=== PATIENT | female | born 1965 | race Caucasian/White ===

== ENCOUNTER 2016-06-26 13:01 | Observation (INO) | payer BC, MEDICARE ==
[~2016-06-26] VITALS: Ht 157.5 cm; Wt 115.2 kg
[2016-06-26] VITALS (14 sets, daily range): BP systolic 94–122; BP diastolic 54–81; BMI 46.6
--- NOTE | ~2016-06-26 | OP ---
PATIENT NAME: FEDERICO DÍAZ MEDICAL RECORD: [id number] :65 LOCATION:[facility] Harsh[facility]annonCV04 ADMISSION DATE:06/26/16 SURGEON: BRITTON WILLIS MD DATE OF OPERATION: 06/27/2016 PROCEDURES: Left heart catheterization, selective coronary angiography, right femoral artery approach. CATHETERS: A 5-Northern Irish sheath, 5/4 left and right Alexander, 5/4 pig. The procedure was well tolerated and the patient returned to bashir. Sheath removed. ExoSeal device placed. FINDINGS: Left ventriculography in 30-degree PENNY view: Normal wall motion, normal systolic function. CORONARY ANATOMY: LEFT MAIN: Left main is free of disease. LAD: Free of disease. Area of previous stenting is widely patent. CIRCUMFLEX: Free of disease. Somewhat codominant system. RIGHT CORONARY ARTERY: Again, codominant system, free of disease. IMPRESSION: No evidence of restenosis. No progression of yurok disease. Normal LV systolic function. TRANSINT:[id number] Voice Confirmation ID: [id number] DOCUMENT ID: [id number] BRITTON WILLIS MD CC: [id number] DICTATION DATE: 06/27/16 1209 CAUL FAT PULLER: 06/27/162054 DIS IN 06/27/16 [facility] [address] [place] [address]
--- NOTE | ~2016-06-26 | HP ---
PATIENT: FEDERICO DÍAZ MEDICAL RECORD: [id number] ACCOUNT: [id number] LOCATION:[facility].CV04 : 65 ADMISSION DATE: 06/26/16 HISTORY AND PHYSICAL EXAMINATION HISTORY OF PRESENT ILLNESS: A 50-year-old lady with history of sick sinus syndrome, lupus, coronary artery disease, status post intervention, transferred from [place]. She reports that at home and by EMT, palpitation, she had a heart rate of 31. She has had a near syncopal episode on multiple occasions, some orthostatic symptomatology, some without any significant warning. She has also been having intermittent angina, chest pressure and tightness. We are asked to see her concerning her cardiovascular status. Again, she has a known history of coronary artery disease. PAST MEDICAL HISTORY: 1. History of sick sinus syndrome with PAF, bradyarrhythmias, status post permanent pacemaker placement. 2. Coronary artery disease, status post intervention. 3. Diabetes mellitus. 4. Hypertension. 5. Hyperlipidemia, intolerant to statins due to elevated LFTs. 6. Lupus erythematosus including kidney issues at one point in time. ALLERGIES: HYDROCODONE, HYDROCHLOROTHIAZIDE, LATEX. SOCIAL HISTORY: Lives in [facility]. She is a nonsmoker, No set exercise program. She is able to take care of her ADLs. REVIEW OF SYSTEMS: The patient reports easy bruising but reports no swollen glands. The patient reports no fever, no night sweats, no significant weight gain, no significant weight loss. No significant exercise tolerance. The patient reports no dry eyes, no irritation, no vision change. Patient reports no difficulty hearing and no ear pain. Patient reports no frequent nose bleeds or nose and sinus problems. Patient reports on arm pain on exertion. No shortness of breath while lying down. No history of heart murmur. Patient reports no cough, no wheezing or coughing up blood. Patient reports no abdominal pain, no vomiting. Normal appetite. No diarrhea and not vomiting blood. No nausea and no constipation. Patient reports no incontinence. No difficulty urinating. No hematuria. No increased frequency. Patient reports no muscle aches. No weakness, no arthralgias, no back pain. No swelling of the extremities. Patient reports no abnormal mole, no jaundice, no rashes. Reports no loss of consciousness. No weakness and no numbness. No seizures, dizziness, or headaches. The patient reports no depression, no sleep disturbance, feeling safe in a relationship and no alcohol abuse. Patient reports on fatigue. Reports no runny nose or sinus pressure. No itching, no hives, and no frequent sneezing. MEDICATIONS: Typically include Phenergan 6.25 q.4 hours p.r.n., epinephrine p.r.n., Robaxin 750 t.i.d., Plavix 75 q. day, lisinopril 20 q. day, pravastatin 20 q. day, sotalol 120 b.i.d., aspirin 81 q. day, Ativan 1 mg t.i.d. p.r.n., Topamax 50 b.i.d., trazodone 50 q.h.s., Ultram 50 q. 6 hours, Lasix 20 q. day, Pepcid 20 q. day, ____ b.i.d., Januvia 100 q. day. PHYSICAL EXAMINATION: GENERAL: Pleasant female, in no acute distress, appears stated age. HISTORY AND PHYSICAL [id number] FEDERICO DÍAZ VITAL SIGNS: Blood pressure 95/57, pulse 60 and regular. HEENT: Normocephalic, atraumatic. NECK: No JVD or bruit. HEART: Regular, II/ systolic ejection murmur. LUNGS: Clear. ABDOMEN: Soft, nontender. EXTREMITIES: Pulses are preserved, 2+. There is no edema. DIAGNOSTIC DATA: ECG is without acute change. Pacemaker interrogated, she is having some PVCs, suspect this is the arrhythmia described. Sleep study suggested as well since this was off. PLAN: We will plan for cardiac catheterization for which arteriography in the same setting. TRANSINT:[id number] Voice Confirmation ID: [id number] DOCUMENT ID: [id number] BRITTON WILLIS MD CC: [id number] DICTATION DATE: 06/27/16921 CARPENTER: 06/27/16 1246 ADM IN [place] [id number] [place] [address]
--- NOTE | ~2016-06-26 | HEMODYNAMI ---
PATIENT:FEDERICO DÍAZ MEDICAL RECORD: [id number] : 65 [id number] ADMISSION DATE: 06/26/16 Generatedon:06/27/201612:10 Patient name: FEDERICO DÍAZ Patient #: [id number] SSN: D OB: 1965 Date of study: 06/27/2016 Page: Of Hemodynamic Procedure Report Patient Data Patient Demographics Procedure consent was obtained First Name: FEDERICO Gender: Female Last Name: ARJUN : 1965 [facility] Initial: J Age: 50 year(s) Patient #: [id number] Race: Additional ID: [id number] Contact details [address]: [address] [place] [address] State: [place] City: [place] Zip code: [address] Past Medical History Allergies Allergen Reaction Date Comments Reported Other 07/03/2014 hydrocodone, Latex, allergy Hydochlorothiazide, Wasp Venom Other 06/27/2016 HCTZ,Hydrocodone,latex,wasp allergy Admission Admission Data Admission Date: 06/26/2016 Admission Time: 13:01 Room #: DCLEMENT04 Weight (lbs.): 251 Weight (kg.): 113.85 Lab Results Lab Result Date: 06/27/2016 Lab Result Time: 0:00 Biochemistry Name Units Result Min Max Creatinine mg/dl 0.9 --(-*--)-- 0.6 1.3 Procedure Procedure Types Cath Procedure Diagnostic Procedure LHC LHC w/Coronaries Peripheral Cath Diagnostic Procedure Cath Peripheral Four Vessel Arteriogram Procedure Description Procedure Date Procedure Date: 06/27/2016 Procedure Start Time: 11:51 Procedure End Time: 12:10 Procedure Staff Name Function Jarrod Aragon MD Performing Physician Denzel Cunningham RN Nurse Tanya Mendoza RT Scrub Aleksander Witt RT Monitor Procedure Data Cath Procedure Fluoroscopy Diagnostic fluoroscopy Total fluoroscopy Time: 4.5 time: 4.5 min min Diagnostic fluoroscopy Total fluoroscopy dose: 521 dose: 521 mGy mGy Contrast Material Contrast Material Type Amount (ml) Isovue 300 110 Entry Location Entry Primary Successful Side Size Upsize Upsize Entry Closure Succes sful Closure Location (Fr) 1 (Fr) 2 (Fr) Remarks Device Remarks Femoral Right 5 Fr Exoseal artery Estimated blood loss: 5 ml Diagnostic catheters Device Type Used For End Catheter Placement Cordis 5Fr JL 4.0 Procedure Catheter (MP) Cordis 5Fr 3DRC Catheter Procedure (MP) Cordis 5Fr Pigtail Procedure Catheter (MP) Procedure Complications No complications Procedure Medications Medication Administration Route Dosage Oxygen NC 2 l/min Heparin Flush Bag added to field 2 bags (1000units/500ml NS) 0.9% NaCl I.V. 100 ml/hr Fentanyl I.V. 50 mcg Versed I.V. 1 mg Fentanyl I.V. 50 mcg Versed I.V. 1 mg Fentanyl I.V. 50 mcg Versed I.V. 1 mg Fentanyl I.V. 50 mcg Versed I.V. 1 mg Hemodynamics Rest Heart Rate: 70 (bpm) Pressure Samples Time Site Value (mmHg) Purpose Heart Use Rate(bpm) 12:01 LV 89/27,28 Snapshot 69 12:01 LV 89/27,27 Snapshot 70 12:02 AO 97/69(74) Pullback 74 12:02 LV 83/17,25 Pullback 74 Gradients Valve Time Site 1 Site 2 Mean SEP/DFP Peak To Heart Use (mmHg) (sec/min) Peak Rate (mmHg) (bpm) Aortic 12:02 LV AO 0 11 0 74 83/17,25 97/69(74) Calculations Valve P-P Mean Valve Index Valve Source Name Gradient Area Flow (cm2) Aortic 0 0 0 0 Snapshots Pre Cath Intra NCS Post Cath Vital Signs Time Heart Resp SPO2 NIBP Rhythm Pain Sedation Rate (ipm) (%) (mmHg) Status Level (bpm) 11:40:15 69 18 100 118/78(97) NSR 0 (11) 10(A) , No pain 11:44:22 69 16 100 108/71(91) NSR 0 (11) 10(A) , No pain 11:48:30 69 18 100 98/72(87) NSR 0 (11) 10(A) , No pain 11:52:38 69 16 99 97/65(90) NSR 0 (11) 9(A) , No pain 11:56:44 73 17 98 97/65(81) NSR 0 (11) 9(A) , No pain 12:00:52 71 17 100 100/58(81) NSR 0 (11) 9(A) , No pain 12:04:58 69 18 98 94/62(75) NSR 0 (11) 9(A) , No pain 12:09:03 69 12 99 94/68(80) NSR 0 (11) 9(A) , No pain Medications Time Medication Route Dose Verified Delivered Reason Notes Effec tiveness by by 11:39:31 Oxygen NC 2 Denzel Denzel Per l/min Octavio Cunningham RN physician RN 11:39:40 Heparin Flush added 2 Denzel Denzel used for Bag to bags Octavio Cunningham RN procedure (1000units/500ml field RN NS) 11:39:50 0.9% NaCl I.V. 100 Denzel Denzel Per ml/hr Octavio Cunningham RN physician RN 11:49:37 Fentanyl I.V. 50 Denzel Denzel [place] [facility] [place]avio Cunningham RN sedation RN 11:49:44 Versed I.V. 1 mg Denzel Denzel for Octavio Cunningham RN sedation RN 11:51:53 Fentanyl I.V. 50 Denzel Denzel for [facility] Octavio Cunningham RN sedation RN 11:51:57 Versed I.V. 1 mg Denzel Denzel for Octavio Cunningham RN sedation RN 11:56:19 Fentanyl I.V. 50 Denzel Denzel for [facility] Octavio Cunningham RN sedation RN 11:56:22 Versed I.V. 1 mg Denzel Denzel for Octavio Cunningham RN sedation RN 11:58:37 Fentanyl I.V. 50 Denzel Denzel for [facility] Octavio Cunningham RN sedation RN 11:58:40 Versed I.V. 1 mg Denzel Denzel for Octavio Cunningham RN sedation millwright Log Time Note 11:15:19 Denzel Cunningham RN sent for patient. Start room use. 11:21:53 Time tracking: Regular hours 11:21:56 Plan of Care:Hemodynamics will remain stable., Cardiac rhythm will remain stable., Comfort level will be maintained., Respiratory function will remain adequate., Patient/ family verbilizes understanding of procedure., Procedure tolerated without complication., Recovers from procedure without complications.. 11:27:40 Patient received from CVICU to CCL 2 Alert and oriented. Tansferred to table in Supine position. 11:27:41 Warm blankets applied, and gabbi hugger turned on for patient comfort. 11:27:42 Correct patient and procedure confirmed by team. 11:27:43 Signed procedure consent form obtained from patient. 11:27:44 ECG and BP/O2 sat monitors applied to patient. 11:39:13 Vital chart was started 11:39:31 Oxygen 2 l/min NC was administered by Denzel Cunningham RN; Per physician; 11:39:40 Heparin Flush Bag (1000units/500ml NS) 2 bags added to field was administered by Denzel Cunningham RN; used for procedure; 11:39:50 0.9% NaCl 100 ml/hr I.V. was administered by Denzel Cunningham RN; Per physician; 11:42:59 Baseline sample Acquired. 11:43:08 Rhythm: paced 11:46:07 H&P Date Dictated: 06/27/2016 Within 30 days and on chart.. 11:46:08 Pre-procedure instructions explained to patient. 11:46:08 Pre-op teaching completed and patient verbalized understanding. 11:46:11 Family in waiting room. 11:46:13 Patient NPO since Midnight. 11:46:43 Patient allergic to Other allergyHCTZ,Hydrocodone,latex,wasp 11:46:45 Is the patient allergic to Iodine/contrast media? No. 11:46:46 Is patient on blood thinner?Yes 11:46:48 ACC The patient was administered the following blood thiners within the last 24 hours: ACCPlavix 11:46:49 Patient diabetic? Yes. 11:46:50 If diabetic: On Metformin? No 11:46:54 Previous problem with sedation/anesthesia? No ? 11:46:54 Snore? Yes 11:46:55 Sleep apnea? Yes 11:46:56 Deviated septum? No 11:46:57 Opens mouth fully? Yes 11:46:57 Sticks out tongue? Yes 11:46:59 Airway obstruction? No ? 11:47:04 Dentures? Yes in tight 11:47:08 Pre procedure: right dorsailis pedis pulse 1+ Palpable, but thready & weak; easily obliterated 11:47:10 Patient pain scale 0/10 ?. 11:47:21 IV patent on arrival in right forearm with 0.9% NaCl at [facility]. 11:47:38 Lab Result : Creatinine 0.9 mg/dl 11:47:40 Lab results completed and on chart. 11:47:43 Right groin area was prepped with chlora-prep and draped in sterile fashion 11:47:44 Alarms reviewed by R. N. 11:47:45 Alarms reviewed by R. N. 11:47:45 Sharps counted by scrub and verified by R.N. 11:47:46 Physician arrived 11:47:46 --------ALL STOP TIME OUT------ 11:47:47 Final Timeout: patient, procedure, and site verified with staff and physician. All members of the team are in agreement. 11:47:48 Right groin site verified by team. 11:47:52 Physical assessment completed. ASA score P 2 - A patient with mild systemic disease as per Jarrod Aragon MD. 11:47:55 Sedation plan: IV Moderate Sedation Versed, Fentanyl 11:47:58 Use device set Femoral Dx 11:47:59 Tegaderm 4 x 4 opened to sterile field. 11:48:00 Acist Hand Control opened to sterile field. 11:48:01 Acist Manifold opened to sterile field. 11:48:02 Acist Syringe opened to sterile field. 11:48:03 Bag Decanter opened to sterile field. 11:48:03 Medline Cath Pack opened to sterile field. 11:48:04 Terumo 5Fr [place] Sheath opened to sterile field. 11:48:04 [facility] Mark 260cm J .035 wire opened to sterile field. 11:48:05 Diagnostic Infinity 5Fr Multipack catheter opened to sterile field. 11:49:24 Zero performed for pressure channel P1 11:49:37 Fentanyl 50 mcg I.V. was administered by Denezl Cunningham RN; for sedation; 11:49:44 Versed 1 mg I.V. was administered by Denzel Cunningham RN; for sedation; 11:51:37 Procedure started. 11:51:37 Full Disclosure recording started 11:51:40 Local anesthetic to right femoral artery with Lidocaine 2% by Jarrod Aragon MD.INITIAL ACCESS ONLY 11:51:53 Fentanyl 50 mcg I.V. was administered by Denzel Cunningham RN; for sedation; 11:51:57 Versed 1 mg I.V. was administered by Denzel Cunningham RN; for sedation; 11:52:26 A 5 Fr sheath was inserted into the Right Femoral artery 11:52:52 A Cordis 5Fr JL 4.0 Catheter (MP) was advanced over the wire and used for Procedure. 11:53:51 LCA angiography performed. 11:54:24 Catheter exchanged over wire. 11:54:34 A Cordis 5Fr 3DRC Catheter (MP) was advanced over the wire and used for Procedure. 11:55:25 RCA angiography performed. 11:56:19 Fentanyl 50 mcg I.V. was administered by Denzel Cunningham RN; for sedation; 11:56:22 Versed 1 mg I.V. was administered by Denzel Cunningham RN; for sedation; 11:58:37 Fentanyl 50 mcg I.V. was administered by Denzel Cunningham RN; for sedation; 11:58:38 Left carotid angiography performed. 11:58:40 Versed 1 mg I.V. was administered by Denzel Cunningham RN; for sedation; 11:59:12 Right carotid angiography performed. 12:00:10 Catheter removed. 12:00:38 Procedure type changed to Cath procedure, Diagnostic procedure, LHC, LHC w/Coronaries, Peripheral Cath Diagnostic Procedure, Cath Peripheral, Four Vessel Arteriogram 12:01:00 A Cordis 5Fr Pigtail Catheter (MP) was advanced over the wire and used for Procedure. 12:01:46 LV hemodynamics recorded. 12:01:47 LV gram done using PENNY 12:01:50 Injector settings: Ml/sec: 10, Volume: 20, 12:02:02 EF : 60 % 12:02:16 Catheter removed. 12:02:30 Cordis 5Fr Exoseal opened to sterile field. 12:03:19 Sheath removed intact; hemostasis achieved with Exoseal to the Right Femoral artery. 12:03:20 Procedure ended.(Physican Out) 12:05:41 Fluoroscopy time 04.50 minutes. 12:05:46 Fluoroscopy dose: 521 mGy 12:05:46 Flurop Dose total: 521 12:05:53 Contrast amount:Isovue 300 110ml. 12:05:54 Sharps counted by scrub and verified by R.N. 12:05:55 Insertion/operative site no bleeding no hematoma. 12:05:57 Post-op/insertion site Right Femoral artery dressed using a 4 x 4 and Tegaderm. 12:06:00 Post right femoral artery:stable, soft, clean and dry 12:06:03 Post Procedure Pulses reassessed and unchanged 12:06:05 Post-procedure physical assessment completed. ASA score P 2 - A patient with mild systemic disease as per Jarrod Aragon MD. 12:06:07 Post procedure rhythm: unchanged. 12:06:09 Estimated blood loss: 5 ml 12:09:56 Procedure and supply charges have been captured, reviewed, submitted and are correct. 12:09:59 Procedure Complication : No complications 12:10:01 Vital chart was stopped 12:10:01 See physician's report for complete and final results. 12:10:04 Report given to CVICU. 12:10:06 Patient transfered to CVICU with Stretcher. 12:10:08 Procedure ended. 12:10:08 Full Disclosure recording stopped 12:10:14 End room use (Document Last) 12:10:25 Patient Weight : 113.85 kg Device Usage Item Name Manufacture Quantity Catalog Hospital Part Current Minimal Lo t# / Number Charge Number Stock Stock Serial# Code Tegaderm 4 3M 1 [id number] 798100 5 x 4 Acist Hand Acist 1 70434 750761 711795 844807 5 Control [employer] Inc Acist Acist 1 05348 066392 965054 347652 5 Manifold Medical [employer] Inc Acist Acist 1 98226 140498 264245 633779 20 Syringe Medical Systems Inc Bag Microtek 1 2002S 978305 61911 120705 5 Decanter [employer] Inc[employer] Medline Cardinal 1 [id number] 569135 02619 708787 5 Cath Pack Health Terumo 5Fr Terumo 1 [id number] 276508 019836 174261 [address] [facility] 1 576968 665959 068564 692494 30 260cm J .035 wire Diagnostic Cardinal 1 [id number] 777643 28620 495510 30 Infinity Health 5Fr Multipack catheter Cordis 5Fr Cardinal 1 406142 5 JL 4.0 Health Catheter (MP) Cordis 5Fr Cardinal 1 697525 5 3DRC Health Catheter (MP) Cordis 5Fr Cardinal 1 EX500 565859 863223 208666 10 [facility] Health Cordis 5Fr Cardinal 1 [id number] 5 Pigtail Health Catheter (MP) Signature Audit [place] Stage Time Signature Unsigned Intra-Procedure 06/27/2016 Aleksander Witt 12:10:36 PM RT(R) Signatures Monitor : Aleksander Witt RT Signature : Date : Time : [place] [address] [place] [address]
--- NOTE | ~2016-06-26 | OP ---
PATIENT NAME: FEDERICO DÍAZ MEDICAL RECORD: [id number] :65 LOCATION:DShannonCONCHITABrittny D.CV04 ADMISSION DATE:06/26/16 SURGEON: BRITTON WILLIS MD DATE OF OPERATION: 06/27/2016 Carotid Doppler FINDINGS: 1. Right common carotids were selectively engaged. Findings are as follows: The right common carotid is widely patent with minimal irregularities. Right external carotid is widely patent with luminal irregularities. 2. Right internal carotid is widely patent with luminal irregularities. The catheter was drawn proximally and the left common carotid was cannulated again selectively. 3. Left common carotid is normal. The left external carotid is normal without significant disease. Left internal carotid is normal without significant disease. IMPRESSION: Normal 4-vessel arteriography. TRANSINT:[id number] Voice Confirmation ID: [id number] DOCUMENT ID: [id number] BRITTON WILLIS MD CC: [id number] DICTATION DATE: 06/27/16 1210 PATIENT ADMITTING CLERK: 06/27/162058 DIS IN 06/27/16 [facility] [address] [place] [id number]
[~2016-06-26 13:01] MED LIST: ATIVAN0.5 MG PO; BAYER CHEWABLE81 MG PO; BENADRYL25 MG PO; BYSTOLIC2.5 MG PO; CORTEF10 MG PO; EPIPEN0.3 MG/0.3 IM; FUROSEMIDE20 MG PO; GAS-X125 M1 PO; NITROSTAT0.3 MG SL; PEPCID20 MG PO; PLAVIX75 MG PO; PRAVACHOL20 MG PO; PRECOSE25 MG PO; PRILOSEC20 MG PO; PRINIVIL20 MG PO; PROAIR HFA8.5 GM INH; PULMICORT180 MCG/AE INH; RYTHMOL225 MG PO; TOPAMAX50 MG PO; ULTRAM50 MG PO; [UNRECOGNIZED DRUG - REMARK] INH
[2016-06-26] MEDS ORDERED: BETAPACE 120 M120 MG PO (14:06)
[2016-06-26] MEDS ORDERED: PHENERGAN6.25 MG/5 PO (14:07)
[2016-06-26] MEDS ORDERED: ACETAMINOPHEN325 MG PO (14:08)
[2016-06-26] MEDS ORDERED: TRAZODONE HCL50 MG PO (14:08)
[2016-06-26] MEDS ORDERED: ROBAXIN-750750 MG PO (14:10)
[2016-06-26] MEDS ORDERED: PULMICORT180 MCG/AE INH (14:11)
[2016-06-26] MEDS ORDERED: JANUVIA100 MG PO (14:12)
[2016-06-26] MEDS ORDERED: ULTRAM50 MG PO (14:13)
[2016-06-26] MEDS ORDERED: TOPAMAX50 MG PO (14:14)
--- NOTE | 2016-06-26 17:36 | NUR ---
REVIEWED ALL HOME MEDS WITH PATIENT AND -UPDATED CONTACT TELEPHONE NUMBER-NOTED SR MONITOR AT 69-71-WITH 10% PACED BEATS
--- NOTE | 2016-06-26 18:36 | NUR ---
AMBULATED TO TOILET WITH ASSIST OF -PACED 100%-70
--- NOTE | 2016-06-26 19:15 | NUR ---
REPORT RECVD. CARE ASSUMED. INITIAL ASSMNT COMPLETED. SEE FLOWSHEET FOR ALL FINDINGS. AWAKE AND AOX4. PERRLA NOTED. MAEW ON COMMAND. RESP EVEN AND UNLABORED. SHALLOW. LUNGS CTA, DIM IN BASES. REPORTS PRODUCTIVE COUGH AT TIMES. SPO2 97% ON O2 AT 2 LPM NC. AFEBRILE. SR ON THE MONITOR. PERM PM TP LEFT CHEST. PULSES PALP, WEAK. SYS B/P WITHIN PARAMETERS. SCDS ON AND IN USE. REPORTS GENERALIZED CHRONIC PAIN AT THIS TIME. DENIES CHEST PAIN. REPORTS FEELING "SMOTHERED." FAN IN USE. ABD SOFT, ROUND WITH ACTIVE BS X4. VOIDING. UP WITH MINIMAL ASSIST TO BR PRN. AT BEDSIDE. PO FLUID AND SNACK PROVIDED. HOB UP. C/L IN REACH. CONT CURRENT POC.
--- NOTE | 2016-06-26 20:30 | NUR ---
FSBS WITHIN PARAMETERS. HS MEDS GIVEN. PRN ATIVAN PROVIDED FOR ANXIETY. UP TO BR TO VOID NO DIFF. VSS. PACED ON THE MONITOR AT TIMES. REPORTS GENERALIZED ACHING AND RESTLESSNESS. POSITIONS SELF IN BED FOR COMFORT. HOB UP. C/L IN REACH. CONT CURRENT POC.
--- NOTE | 2016-06-26 23:15 | NUR ---
REASSESSMENT COMPLETED. SEE FLOWSHEET FOR ALL FINDINGS. RESTING.AOX4. AALIYAH NOTED. MAEW ON COMMAND. RESP EVEN AND UNLABORED. SHALLOW. LUNGS CTA, DIM IN BASES. REPORTS PRODUCTIVE COUGH AT TIMES. SPO2 97% ON O2 AT 2 LPM NC. AFEBRILE. SR ON THE MONITOR. PERM PM TO LEFT CHEST. PULSES PALP, WEAK. SYS B/P WITHIN PARAMETERS. SCDS ON AND IN USE. REPORTS GENERALIZED CHRONIC PAIN AT THIS TIME. DENIES CHEST PAIN. REPORTS FEELING "SMOTHERED." FAN IN USE ABD SOFT, ROUND WITH ACTIVE BS X4. VOIDING. UP WITH MINIMAL ASSIST TO BR PRN. AT BEDSIDE. PO FLUIDS AT BEDSIDE. REMINDED OF NPO AFTER MIDNIGHT. VERBALIZES UNDERSTANDING. HOB UP. C/L IN REACH. CONT CURRENT POC.
[2016-06-27] VITALS (16 sets, daily range): BP systolic 95–120; BP diastolic 57–85; Ht 157.5 cm; Wt 115.2 kg
--- NOTE | 2016-06-27 00:20 | NUR ---
PT REPORTS INCREASED LEFT ARM PAIN AND RADIATING JAW PAIN. HR 62. EKG CONFIRMED NORMAL SINUS RHYTHM. NO ECTOPY. REPORED TO DR WILLIS. ORDERS RECVD FOR PAIN CONTROL. PT TEACHING DONE. VERBALIZES UNDERSTANDING. CONT CURRENT POC.
--- NOTE | 2016-06-27 01:21 | NUR ---
RESTING IN BED. PAIN DECREASED. VSS. SR ON THE MONITOR. HOB UP. C/L IN REACH. NPO.
--- NOTE | 2016-06-27 03:15 | NUR ---
REASSESSMENT COMPLETED. SEE FLOWSHEET FOR ALL FINDINGS. RESTING. AOX4. AALIYAH NOTED. MAEW ON COMMAND. RESP EVEN AND UNLABORED. SHALLOW. LUNGS CTA, DIM IN BASES. REPORTS PRODUCTIVE COUGH AT TIMES. SPO2 97% ON O2 AT 2 LPM NC. AFEBRILE. SR ON THE MONITOR. PERM PM TP LEFT CHEST. PULSES PALP, WEAK. SYS B/P WITHIN PARAMETERS. SCDS ON AND IN USE. REPORTS GENERALIZED CHRONIC PAIN AT THIS TIME. DENIES CHEST PAIN. REPORTS FEELING "SMOTHERED." FAN IN USE ABD SOFT, ROUND WITH ACTIVE BS X4. VOIDING. UP WITH MINIMAL ASSIST TO BR PRN. AT BEDSIDE. NPO SINCE MN. HOB UP. C/L IN REACH. CONT CURRENT POC.
--- NOTE | 2016-06-27 04:30 | NUR ---
C/O FEELING "HPT AND SWEATY AND SMOTHERED!" ANXIOUS. REQUESTS ATIVAN AND MUSCLE RELAXER TO PROMOTE REST AND DECREASE ANXIETY. SPO2 99% ON O2 AT 2 LPM. HR 60 NSR. HOB UP. C/L IN REACH. CONT TO MONITOR.
[2016-06-27 05:18] LABS: BASOPHILS 0.1 % (0-2); EOSINOPHILS 5.1 % (0-7); HEMATOCRIT 35.8 % (36.0-48.0); HEMOGLOBIN 10.9 g/dL (12-16); IMMATURE GRANULOCYTES 0.3 % (0-5); LYMPHOCYTES 36.6 % (15-50); MCH 22.8 pg (26.0-34.0); MCHC 30.4 g/dL (31.0-37.0); MCV 74.9 fL (80.0-100.0); MEAN PLATELET VOLUME 9.8 fL (7.4-10.4); MONOCYTES 10.7 % (2-11); NEUTROPHILS 47.2 % (40-80); PLATELET COUNT 296 10x3/uL (130-400); RBC 4.78 10x6/uL (4.00-5.40); WBC 7.3 10x3/uL (4.8-10.8)
--- NOTE | 2016-06-27 05:30 | NUR ---
RESTING SIDE LYING WITH EYES CLOSED. VSS. SR ON THE MONITOR. CONT POC.
[2016-06-27 05:35] LABS: APTT 22.6 SECONDS (22.8-39.4); INR 0.92 (0.85-1.17); PROTIME 12.2 SECONDS (11.6-15.0)
[2016-06-27 05:40] LABS: ALBUMIN 2.9 g/dL (3.4-5.0); ANION GAP 11.9 mmol/L (8-16); BILIRUBIN - TOTAL 0.32 mg/dL (0.2-1.3); CALCIUM 8.5 mg/dL (8.5-10.1); CARBON DIOXIDE 26.8 mmol/L (21.0-32.0); CREATININE - SERUM 0.9 mg/dL (0.6-1.3); POTASSIUM - SERUM 3.7 mmol/L (3.5-5.1); PROTEIN - SERUM 6.5 g/dL (6.4-8.2)
--- NOTE | 2016-06-27 07:00 | NUR ---
Recevied report and assumed care of patient. Patient currently awake, alert and oriented. HR 63 sinus rhtyhm on CM, No pacer spikes noted on CM. Right forearm PIV saline locked without redness or tenderness. SBP low 100s. SCDS in place. See shift assessment flowsheet for all full assessment.
--- NOTE | 2016-06-27 08:20 | NUR ---
Roger with [facility] through, patient to go for Cath this morning. POC discussed with patient.
--- NOTE | 2016-06-27 08:31 | NUR ---
[employer]tr[employer] in room to interegate permanent pacemaker. Internal clock was off 1 hour, adjusted, HR now 70, 100% paced.
--- NOTE | 2016-06-27 09:05 | NUR ---
Patient assisted patient to bathroom, wash cloths, tooth brush provided. helped patient clean up, new gown provided.
--- NOTE | 2016-06-27 09:20 | NUR ---
in to see patient. He will be taking pt to superintendent geophysical laboratory today. POC discussed with pt and myself.
--- NOTE | 2016-06-27 10:21 | NUR ---
Patient requesting Pulmicort, informed her that the next dose isnt due until 5pm.
--- NOTE | 2016-06-27 11:31 | NUR ---
Patient taken to laboratory engineer by Denzel via bed.
--- NOTE | 2016-06-27 12:17 | NUR ---
Received report from Denzel. in to see patient's , gave him update on cath.
--- NOTE | 2016-06-27 12:18 | NUR ---
Patient back from quality lab technician. Connected to .
--- NOTE | 2016-06-27 14:29 | NUR ---
Patients access site CDI, without hematoma, soft to touch. HOB increased, pt eating lunch tray with husbands assistance.
--- NOTE | 2016-06-27 15:10 | NUR ---
Patient up to bathroom. Access site remains soft, clean. Patient to be d/c home.
== END 2016-06-27 16:07 | disposition home or self-care (01) ==
LOC: D.CVICU 13:01 → OBSVTIME 13:01 → D.CVICU 06-27 16:07
PROVIDERS: ADMIT Internal Medicine Interventional Cardiology
DX: R07.9 Chest pain, unspecified (principal); I25.10 Atherosclerotic heart disease of native coronary artery without angina pectoris; I48.0 Paroxysmal atrial fibrillation; Z95.0 Presence of cardiac pacemaker; E11.9 Type 2 diabetes mellitus without complications; I10 Essential (primary) hypertension; E78.5 Hyperlipidemia, unspecified; M32.9 Systemic lupus erythematosus, unspecified

== ENCOUNTER → 2016-09-20 09:02 | Outpatient (CLI) | payer BC, MEDICARE ==
[2016-06-27 09:20] VITALS: BMI 46.5
[~2016-09-20 09:02] MED LIST changes: +ACETAMINOPHEN325 MG PO; +BETAPACE 120 M120 MG PO; +JANUVIA100 MG PO; +PHENERGAN6.25 MG/5 PO; +ROBAXIN-750750 MG PO; +TRAZODONE HCL50 MG PO
[2016-09-21 10:19] LABS: HEPATITIS C ANTIBODY <0.1 (0.0-0.9)
[2016-09-21 11:18] LABS: ALPHA FETOPROTEIN -(TUMOR MRK) 3.7 ng/mL (0.0-8.3)
== END | disposition home or self-care (01) ==
LOC: D.US 09:02
PROVIDERS: Internal Medicine Gastroenterology
DX: R93.8 Abnormal findings on diagnostic imaging of other specified body structures (principal); R74.8 Abnormal levels of other serum enzymes

== ENCOUNTER 2016-12-27 09:43 | Outpatient (CLI) | payer BC, MEDICARE ==
[2016-06-27 09:20] VITALS: BMI 46.5
--- NOTE | ~2016-12-27 | HEMODYNAMI ---
PATIENT:FEDERICO DÍAZ MEDICAL RECORD: [id number] : 65 LOCATION:DShannonCAT ADMISSION DATE: 12/27/16 Generatedon:12/27/201613:48 Patient name: FEDERICO DÍAZ Patient #: [id number] SSN: D OB: 1965 Date of study: 12/27/2016 Page: Of Hemodynamic Procedure Report Patient Data Patient Demographics Procedure consent was obtained First Name: FEDERICO Gender: Female Last Name: ARJUN : 1965 [facility] Initial: J Age: 51 year(s) Patient #: [id number] Race: Additional ID: [id number] Contact details [address]: [address] [place] [address] State: [place] City: [place] Zip code: [address] Past Medical History Allergies Allergen Reaction Date Comments Reported Other 07/03/2014 hydrocodone, Latex, allergy Hydochlorothiazide, Wasp Venom Other 06/27/2016 HCTZ,Hydrocodone,latex,wasp allergy Other 12/27/2016 HYDROCODONE, LATEX, HCT2 allergy Admission Admission Data Admission Date: 12/27/2016 Admission Time: 9:43 Admit Source: Other Lab Results Lab Result Date: 12/27/2016 Lab Result Time: 0:00 Biochemistry Name Units Result Min Max BUN mg/dl 15 --(--*-)-- 7 18 Creatinine mg/dl 0.9 --(-*--)-- 0.6 1.3 CBC Name Units Result Min Max Hemoglobin g/dl 10.4 *-(----)-- 13.5 17.5 Procedure Procedure Types Cath Procedure Diagnostic Procedure LHC LH w/Coronaries PCI Procedure Coronary Stent Initial Miscellaneous Procedures Moderate Sedation up to 30 minutes Procedure Description Procedure Date Procedure Date: 12/27/2016 Procedure Start Time: 13:24 Procedure End Time: 13:47 Procedure Staff Name Function Jarrod Aragon MD Performing Physician Jennie Weldon RT Scrub Denzel Cunningham RN Nurse Aleksander Witt RT Monitor Procedure Data Cath Procedure Fluoroscopy Diagnostic fluoroscopy Total fluoroscopy Time: 5.6 time: 5.6 min min Diagnostic fluoroscopy Total fluoroscopy dose: 826 dose: 826 mGy mGy Contrast Material Contrast Material Type Amount (ml) Isovue 300 113 Entry Location Entry Primary Successful Side Size Upsize Upsize Entry Closure Succes sful Closure Location (Fr) 1 (Fr) 2 (Fr) Remarks Device Remarks Femoral Right 5 Fr 6 Fr Exoseal artery Short Estimated blood loss: 10 ml Diagnostic catheters Device Type Used For End Catheter Placement Cordis 5Fr JL 4.0 Procedure Catheter (MP) Cordis 5Fr 3DRC Catheter Procedure (MP) Cordis 5Fr Pigtail Procedure Catheter (MP) Procedure Complications No complications Procedure Medications Medication Administration Route Dosage Oxygen NC 2 l/min Heparin Flush Bag added to field 2 bags (1000units/500ml NS) 0.9% NaCl I.V. 100 ml/hr Zofran I.V. 4 mg Fentanyl I.V. 50 mcg Versed I.V. 1 mg Fentanyl I.V. 50 mcg Versed I.V. 1 mg Heparin Bolus I.V. 4000 units Integrilin (Bolus I.V. 10.2 ml 2mg/ml) Integrilin (Bolus wasted 9.8 ml 2mg/ml) Hemodynamics Rest HGB: 10.4 (g/dl) Heart Rate: 71 (bpm) Pressure Samples Time Site Value (mmHg) Purpose Heart Use Rate(bpm) 13:29 LV 112/14,20 EDP 75 13:30 AO 120/74(93) Pullback 82 13:30 LV 104/16,19 Pullback 82 Gradients Valve Time Site 1 Site 2 Mean SEP/DFP Peak To Heart Use (mmHg) (sec/min) Peak Rate (mmHg) (bpm) Aortic 13:30 LV AO 0 8 0 82 104/16,19 120/74(93) Calculations Valve P-P Mean Valve Index Valve Source Name Gradient Area Flow (cm2) Aortic 0 0 0 0 Snapshots Pre Cath Intra NCS Post Cath Vital Signs Time Heart Resp SPO2 etCO2 NIBP (mmHg) Rhythm Pain Sedation Rate (ipm) (%) (mmHg) Status Level (bpm) 13:06:06 75 17 100 21 118/79(97) NSR 0 (11) 10(A) , No pain 13:11:36 69 18 100 29.3 124/83(99) NSR 0 (11) 10(A) , No pain 13:16:23 69 17 100 32.3 124/81(97) NSR 0 (11) 10(A) , No pain 13:21:09 69 17 100 27 125/77(101) NSR 0 (11) 10(A) , No pain 13:25:54 69 18 100 10.5 116/77(93) NSR 0 (11) 9(A) , No pain 13:30:37 75 18 97 9.7 113/79(93) NSR 0 (11) 9(A) , No pain 13:35:19 78 17 95 30.8 113/74(91) NSR 0 (11) 9(A) , No pain 13:40:00 80 18 96 33.8 102/69(87) NSR 0 (11) 9(A) , No pain 13:44:41 72 22 100 30.8 114/75(88) NSR 0 (11) 10(A) , No pain Medications Time Medication Route Dose Verified Delivered Reason Notes Effectiveness by by 13:23:54 Oxygen NC 2 Jarrod Denzel Per physician l/min St. Willam Cunningham RN, MD 13:24:02 Heparin Flush added 2 Jarrod Mahoney used for Bag to bags [facility]. Willam Cunningham RN procedure (1000units/500ml field WALSH NS) 13:24:14 0.9% NaCl I.V. 100 Jarrod Mahoney Per physician ml/hr [facility] Willam Cunningham RN, MD 13:24:26 Zofran I.V. 4 mg Jarrod Mahoney Per physician [facility]. Willam Cunningham RN, MD 13:24:34 Fentanyl I.V. 50 Jarrod Joyy for sedation mcg [facility] Willam Cunningham RN, MD 13:24:41 Versed I.V. 1 mg Jarrod Mahoney for sedation [facility]. Willam Cunningham RN, MD 13:26:39 Fentanyl I.V. 50 Jarrod Mahoney for sedation mcg [facility] Willam Cunningham RN, MD 13:26:42 Versed I.V. 1 mg Jarrod Joyy for sedation [facility]. Willam Cunningham RN, MD 13:32:50 Heparin Bolus I.V. 4000 Jarrod Mahoney for units [facility] Willam Cunningham RN anticoagulation 13:33:03 Integrilin I.V. 10.2 Jarrod Mahoney for (Bolus 2mg/ml) ml [facility] Willam Cunningham RN anticoagulation MD 13:33:12 Integrilin wasted 9.8 Jarrod Mahoney for (Bolus 2mg/ml) ml [facility]. Willam Cunningham RN anticoagulation MD Procedure Log Time Note 12:42:27 Jennie Weldon RT(R) sent for patient. Start room use. 12:49:49 Informed consent obtained and on chart 12:49:56 Admit Source: Other 12:52:23 Diagnostic Cath status Elective 12:52:28 Time tracking: Regular hours 12:52:33 Plan of Care:Hemodynamics will remain stable., Cardiac rhythm will remain stable., Comfort level will be maintained., Respiratory function will remain adequate., Patient/ family verbilizes understanding of procedure., Procedure tolerated without complication., Recovers from procedure without complications.. 12:55:03 H&P Date Dictated: 12/08/2016 Within 30 days and on chart., H&P Addendum completed by physician on day of procedure. (MUST COMPLETE FOR ALL OUTPATIENTS). 12:56:37 Patient received from Pre/Post Procedure Room to CCL 1 Alert and oriented. Tansferred to table in Supine position. 12:56:38 Warm blankets applied, and gabbi hugger turned on for patient comfort. 12:56:39 Correct patient and procedure confirmed by team. 12:56:40 ECG and BP/O2 sat monitors applied to patient. 13:05:09 Vital chart was started 13:05:10 Baseline sample Acquired. 13:05:15 Rhythm: sinus rhythm 13:05:19 Full Disclosure recording started 13:05:21 Baseline sample Acquired. 13:05:25 Pre-procedure instructions explained to patient. 13:05:26 Pre-op teaching completed and patient verbalized understanding. 13:05:29 Family in waiting room. 13:05:34 Patient NPO since Breakfast. 13:07:10 Patient allergic to Other allergyHYDROCODONE, LATEX, HCT2 13:07:14 Is the patient allergic to Iodine/contrast media? No. 13:07:17 Is patient on blood thinner?Yes 13:07:22 ACC The patient was administered the following blood thiners within the last 24 hours: ACCPlavix 13:07:24 Patient diabetic? Yes. 13:07:27 If diabetic: On Metformin? No 13:10:36 Patient not . Patient has had tubal. 13:11:00 Previous problem with sedation/anesthesia? Yes NAUSEA 13:11:03 Snore? Yes 13:11:05 Sleep apnea? Yes 13:11:06 Deviated septum? No 13:11:07 Opens mouth fully? Yes 13:11:08 Sticks out tongue? Yes 13:11:43 Airway obstruction? No ? 13:11:47 Dentures? No ? 13:12:25 PATIENT HAS SYSTEMIC LUPUS ERYTHEMATOSIS 13:12:38 Pre procedure: right dorsailis pedis pulse 1+ Palpable, but thready & weak; easily obliterated 13:12:41 Patient pain scale 0/10 ?. 13:12:53 IV patent on arrival in left hand with 0.9% NaCl at [facility]. 13:14:01 Lab Result : BUN 15 mg/dl 13:14:01 Lab Result : Creatinine 0.9 mg/dl 13:14:01 Lab Result : Hemoglobin 10.4 g/dl 13:15:14 Physician arrived 13:15:15 Lab results completed and on chart. 13:15:31 Right groin area was prepped with chlora-prep and draped in sterile fashion 13:15:35 Alarms reviewed by R. N. 13:15:36 Sharps counted by scrub and verified by R.N. 13:15:41 --------ALL STOP TIME OUT------ 13:15:41 Final Timeout: patient, procedure, and site verified with staff and physician. All members of the team are in agreement. 13:15:43 Right groin site verified by team. 13:15:47 Physical assessment completed. ASA score P 2 - A patient with mild systemic disease as per Jarrod Aragon MD. 13:15:51 Sedation plan: IV Moderate Sedation Versed, Fentanyl 13:21:43 Use device set Femoral Dx 13:21:56 Acist Syringe opened to sterile field. 13:21:58 Bag Decanter opened to sterile field. 13:21:59 Medline Cath Pack opened to sterile field. 13:22:00 Terumo 5Fr [place] Sheath opened to sterile field. 13:22:01 St Mark 260cm J .035 wire opened to sterile field. 13:22:02 Acist Hand Control opened to sterile field. 13:22:03 Acist Manifold opened to sterile field. 13:22:04 Diagnostic Infinity 5Fr Multipack catheter opened to sterile field. 13:22:06 Tegaderm 4 x 4 opened to sterile field. 13::29 Zero performed for pressure channel P1 13::54 Oxygen 2 l/min NC was administered by Denzel Cunningham RN; Per physician; 13:24:02 Heparin Flush Bag (1000units/500ml NS) 2 bags added to field was administered by Denzel Cunningham RN; used for procedure; 13:24:14 0.9% NaCl 100 ml/hr I.V. was administered by Denzel Cunningham RN; Per physician; 13:24:20 Baseline sample Acquired. 13:24:23 Procedure started. 13::26 Zofran 4 mg I.V. was administered by Denzel Cunningham RN; Per physician; 13::26 Local anesthetic to right femoral artery with Lidocaine 2% by Jarrod Aragon MD.INITIAL ACCESS ONLY 13:24:33 A 5 Fr sheath was inserted into the Right Femoral artery 13:24:34 Fentanyl 50 mcg I.V. was administered by Denzel Cunningham RN; for sedation; 13:24:41 Versed 1 mg I.V. was administered by Denzel Cunningham RN; for sedation; 13:25:15 A Cordis 5Fr JL 4.0 Catheter (MP) was advanced over the wire and used for Procedure. 13:26:36 LCA angiography performed. 13::39 Fentanyl 50 mcg I.V. was administered by Denzel Cunningham RN; for sedation; 13::42 Versed 1 mg I.V. was administered by Denzel Cunningham RN; for sedation; 13::23 Catheter exchanged over wire. 13:27:32 A Cordis 5Fr 3DRC Catheter (MP) was advanced over the wire and used for Procedure. 13:29:07 RCA angiography performed. 13:29:08 Catheter exchanged over wire. 13:29:12 A Cordis 5Fr Pigtail Catheter (MP) was advanced over the wire and used for Procedure. 13::29 Merit BasixCompak Inflation Kit opened to sterile field. 13::54 LV hemodynamics recorded. 13::56 LV gram done using PENNY 13::59 Injector settings: Ml/sec: 10, Volume: 20, 13:30:04 EF : 50 % 13:30:21 Catheter removed. 13:30:23 Terumo 6Fr [place] Sheath opened to sterile field. 13:30:23 Bernabe Whisper J 300cm 0.014 guide wire opened to sterile field. 13:30:37 Medtronic Launcher 6Fr JL 4.0 guide catheter opened to sterile field. 13:31:14 Sheath upsized to a 6 Fr Short. 13:32:29 6 Fr jl 4 guide catheter was inserted over the wire 13:32:32 whisper wire advanced. 13:32:50 Heparin Bolus 4000 units I.V. was administered by Denzel Cunningham RN; for anticoagulation; 13:33:03 Integrilin (Bolus 2mg/ml) 10.2 ml I.V. was administered by Denzel Cunningham RN; for anticoagulation; 13:33:12 Integrilin (Bolus 2mg/ml) 9.8 ml wasted was administered by Denzel Cunningham RN; for anticoagulation; 13:35:07 Wire advanced across lesion. 13:39:54 Inflation Number: 1 A Medtronic Integrity 3.5 X 18 stent was prepped and advanced across the Mid LAD. The stent was deployed at 14 MEGAN for 0:45 (min:sec). 13:40:58 Inflation number: 2 The stent balloon was then re-inflated across the Mid LAD to 10 MEGAN for 0:30 (min:sec). 13:41:12 Stent catheter was removed intact over wire. 13:41:13 Wire removed. 13:41:14 Guide catheter removed. 13:41:25 Cordis 6Fr Exoseal opened to sterile field. 13:41:38 Sheath removed intact; hemostasis achieved with Exoseal to the Right Femoral artery. 13:41:40 Procedure ended.(Physican Out) 13:44:04 Fluoroscopy time 05.60 minutes. 13:44:10 Flurop Dose total: 826 13:44:10 Fluoroscopy dose: 826 mGy 13:44:16 Contrast amount:Isovue 300 113ml. 13:44:17 Sharps counted by scrub and verified by R.N. 13:44:19 Insertion/operative site no bleeding no hematoma. 13:44:21 Post-op/insertion site Right Femoral artery dressed using a 4 x 4 and Tegaderm. 13:44:26 Post right femoral artery:stable, soft, clean and dry 13:44:40 Post Procedure Pulses reassessed and unchanged 13:44:48 Post-procedure physical assessment completed. ASA score P 2 - A patient with mild systemic disease as per Jarrod Aragon MD. 13:44:51 Post procedure rhythm: unchanged. 13:44:56 Estimated blood loss: 10 ml 13:44:57 Post procedure instruction explained to patient.Patient verbalizes understanding. 13:44:58 Patient needs reinforcement of post procedure teaching. 13:45:14 Procedure type changed to Cath procedure, Diagnostic procedure, LHC, LHC w/Coronaries, PCI procedure, Coronary Stent Initial, Miscellaneous Procedures, Moderate Sedation up to 30 minutes 13:46:40 Small skin tear due to pressure holding at end of case. Cleaned and dressed with a 4X4 and tegaderm. 13:46:49 Procedure and supply charges have been captured, reviewed, submitted and are correct. 13:46:51 Procedure Complication : No complications 13:46:54 Vital chart was stopped 13:46:54 See physician's report for complete and final results. 13:46:56 Report given to Pre/Post Procedure Room. 13:46:58 Patient transfered to Pre/Post Procedure Room with Stretcher. 13:47:00 Procedure ended. 13:47:00 Full Disclosure recording stopped 13:47:07 End room use (Document Last) Intervention Summary Intervention Notes Time ActionType Lesion and Equipment Action# Pressure Duration Attributes Used 13:39:54 Place stent Mid LAD Medtronic 1 14 00:45 Integrity 3.5 X 18 stent 13:40:58 Reinflate Mid LAD Medtronic 2 10 00:30 stent Integrity balloon 3.5 X 18 stent Device Usage Item Name Manufacture Quantity Catalog Hospital Part Current Minimal L ot# / Number Charge Number Stock Stock Serial# Code Acist Acist 1 [id number] [id number] 363832 923723 20 Syringe Medical Systems Inc Bag Microtek 1 2001S [id number] 93850 688902 5 [employer] Medline Cardinal 1 [id number] 491870 09777 706873 5 Cath Noble [employer] Terumo 5Fr Terumo 1 [id number] 067013 458280 039075 [address] [facility] 1 113578 447325 200393 010061 30 260cm J .035 wire Acist Hand Acist 1 29280 070794 202401 812446 5 Control Medical Systems Inc Acist Acist 1 45275 490641 501549 049578 5 Manifold Medical Systems Inc Diagnostic Cardinal 1 [id number] 533471 09048 002023 30 Infinity Health 5Fr Multipack catheter Tegaderm 4 3M 1 1626W 624542 618580 866235 5 x 4 Cordis 5Fr Cardinal 1 245674 5 JL 4.0 Health Catheter (MP) Cordis 5Fr Cardinal 1 157863 5 3DRC Health Catheter (MP) Cordis 5Fr Cardinal 1 148905 5 Pigtail Health Catheter (MP) [facility] 1 [id number] 683066 883199 540790 15 AdStack Medical Inflation Kit Terumo 6Fr Terumo 1 [id number] 804014 898149 223649 40 [place] Sheath Bernabe Bernabe 1 [id number] 539613 471815 508156 5 Whisper J Vascular 300cm 0.014 guide wire Medtronic Medtronic 1 [id number] 786418 61510 559178 1 Launcher 6Fr JL 4.0 guide catheter Medtronic Medtronic 1 [id number] 738045 135239 1 0 [id number] Integrity 3.5 X 18 stent Cordis 6Fr Cardinal 1 [id number] 265328 967882 095097 10 [facility] Eventdoo Signature Audit [place] Stage Time Signature Unsigned Intra-Procedure 12/27/2016 Aleksander Witt 1:48:40 PM RT(R) Signatures Monitor : Aleksander Witt RT Signature : Date : Time : [facility] [address] [place] [address]
[2016-12-27 10:43] LABS: BASOPHILS 0.2 % (0-2); EOSINOPHILS 6.8 % (0-7); HEMATOCRIT 33.9 % (36.0-48.0); HEMOGLOBIN 10.4 g/dL (12-16); IMMATURE GRANULOCYTES 0.3 % (0-5); LYMPHOCYTES 30.2 % (15-50); MCH 21.2 pg (26.0-34.0); MCHC 30.7 g/dL (31.0-37.0); MEAN PLATELET VOLUME 9.6 fL (7.4-10.4); MONOCYTES 11.7 % (2-11); NEUTROPHILS 50.8 % (40-80); RBC 4.91 10x6/uL (4.00-5.40); RDW 19.5 % (11.5-14.5); WBC 9.5 10x3/uL (4.8-10.8)
[2016-12-27 10:53] LABS: PLATELET COUNT 359 10x3/uL (130-400)
[2016-12-27 11:11] LABS: ANION GAP 13.8 mmol/L (8-16); CALCIUM 8.7 mg/dL (8.5-10.1); CARBON DIOXIDE 23.2 mmol/L (21.0-32.0); CREATININE - SERUM 0.9 mg/dL (0.6-1.3)
--- NOTE | 2016-12-27 14:10 | NUR ---
RIGHT GROIN 6F EXOSEAL CDI, NO BLEEDING OR HEMATOMA NOTED. 2L NC, NO RESP DISTRESS. NO C/O PAIN OR NAUSEA. VSS. FAMILY AT BEDSIDE, CALL LIGHT WITHIN REACH.
--- NOTE | 2016-12-27 14:40 | NUR ---
PLACED ON BEDPAN. VOIDED 400CC OF CLEAR YELLOW URINE.
--- NOTE | 2016-12-27 14:55 | NUR ---
2L NC, NO RESP DISTRESS. RIGHT GROIN 6F EXOSEAL CDI, NO BLEEDING OR HEMATOMA NOTED. NO C/O PAIN OR NAUSEA AT THIS TIME. SANDWICH TRAY AND DRINK GIVEN. VSS. WILL CONTINUE TO MONINTOR.
--- NOTE | 2016-12-27 15:55 | NUR ---
RESTING QUIETLY WITH EYES CLOSED. VSS. NO C/O AT THIS TIME. RIGHT GROIN 6F EXOSEAL CDI, NO BLEEDING OR HEMATOMA NOTED. FAMILY AT BEDSIDE, CALL LIGHT WITHIN REACH.
--- NOTE | 2016-12-27 17:12 | NUR ---
HOB ELEVATED 30 DEGREES. RIGHT GROIN 6F EXOSEAL CDI, NO BLEEDING OR HEMATOMA NOTED.
--- NOTE | 2016-12-27 17:26 | NUR ---
LEFT PIV D/C'D WITH CATHETER INTAACT, BAND AID TO SITE. UP TO BEDSIDE TO GET DRESSED.
--- NOTE | 2016-12-27 17:30 | NUR ---
DISCHARGE INSTRUCTIONS GIVEN, VERBALIZED UNDERSTANDING.
--- NOTE | 2016-12-27 17:40 | NUR ---
TAKEN OUT VIA WHEELCHAIR BY CATH TRUST MANAGER. LEFT FACILTIY WITH AND ALL PERSONAL BELONGINGS.
--- NOTE | 2017-01-02 13:30 | OP ---
PATIENT NAME: FEDERICO DÍAZ MEDICAL RECORD: [id number] :65 LOCATION:D.CAT ADMISSION DATE: SURGEON: BRITTON WILLIS MD DATE OF OPERATION: 12/27/2016 PROCEDURE: Left heart catheterization, selective coronary angiography, right femoral artery approach. CATHETERS: A 5-Serbian sheath, 5/4 left and right Alexander, 5/4 pig. The procedure was well tolerated and the patient returned to bashir, sheath removed. ExoSeal device was placed. FINDINGS: Left ventriculography in 30-degree PENNY view shows anterior apical mid anterior wall hypokinesis. Overall, function probably lower limits of normal at 50%. CORONARY ANATOMY: LEFT MAIN: Left main is free of disease. LAD: Proximal to the previously placed stent shows about 80% diffuse stenosis, correlating nicely with nuclear study. CIRCUMFLEX: Small circumflex. Free of disease. RIGHT CORONARY ARTERY: Large dominant vessel, free of disease. IMPRESSION: Intervention LAD momentarily. DESCRIPTION OF PROCEDURE: A 5-Serbian sheath was changed for a 6-Serbian sheath, a JL4 guiding catheter provided excellent guide catheter support followed by a 300 cm Whisper wire was placed across the site occluded LAD down this portion of vessel. Stent deployed was a 3.5 x 18 mm Integrity nondrug-eluting stent up to 14 atmospheres. Final injection shows excellent resolution, 80% stenosis, no significant residual. OLIVA flow was 3 throughout the procedure. Heparin and Integrilin were used during the case. Sheath was closed again with the ExoSeal device. TRANSINT:[id number] Voice Confirmation ID: [id number] DOCUMENT ID: [id number] BRITTON WILLIS MD at 1330 CC: [id number] DICTATION DATE: 12/27/16 1347 PROPELLER TESTER: 12/27/16 1406 DEP CLI 12/27/16 [place] [id number] [place] [id number]
== END 2016-12-27 17:40 | disposition home or self-care (01) ==
LOC: D.CATH 09:43
PROVIDERS: Internal Medicine Interventional Cardiology
DX: I25.119 Atherosclerotic heart disease of native coronary artery with unspecified angina pectoris (principal); Z95.5 Presence of coronary angioplasty implant and graft; Z01.812 Encounter for preprocedural laboratory examination

== ENCOUNTER 2017-04-15 06:41 | Inpatient (IN) | payer BC, MEDICARE ==
--- NOTE | ~2017-04-15 | EC ---
PATIENT:FEDERICO DÍAZ DATE OF SERVICE: 04/15/17 SEX: F MEDICAL RECORD: [id number] DATE OF : 65 LOCATION:D.M2 D.211 AGE OF PATIENT: 51 ADMISSION DATE: 04/15/17 REFERRING PHYSICIAN: INTERPRETING PHYSICIAN: MITALI BATRES MD ECHOCARDIOGRAM REPORT ECHO CHARGES 4 ECHO COMPLETE CLINICAL DIAGNOSIS: CP ECHOCARDIOGRAPHIC MEASUREMENTS (adult normal given) AC root (d.<3.7cm) 3.2 cm LV Septum d (<1.2 cm> 1.4 cm Valve Excursion 1.9 cm LV Septum (systole) 2.0 cm Left Atria (s.<4.0cm> 3.4 cm LVPW d(<1.2cm) 1.3 cm RV (d.<2.3cm) 2.8 cm LVPW (sytole) 1.9 cm LV diastole(<5.6CM) 4.8 cm MV E-F(>70mm/sec) cm LV systole 2.6 cm LVOT Diameter 1.7 cm MV exc.(>10mm) cm Est.ejection fraction (50-75%) % Pericardial Effusion N DOPPLER: LVIT cm/sec A 47.0 cm/sec E 60.0 cm/sec LA cm/sec RVSP 26.0 mmHg LVOT 106 cm/sec AOP1/2T m/s Asc. Ao 119 cm/sec RVOT 65.0 cm/sec RA cm/sec PA 86.0 cm/sec AV Gradient Peak 5.7 mmHg AV Mean 3.0 mmHg AV Area 1.7 cm MV Gradient Peak 3.8 mmHg MV Mean 1.6 mmHg MV Area cm COMMENTS: Prosthetics Assistant: Wandy [employer] Worker: Silvia Batres TAPE# PACS DATE OF SERVICE: 04/15/2017 PROCEDURE: Transthoracic echocardiogram. FINDINGS: 1. Left ventricle has [id number] concentric left ventricular hypertrophy. The inflow characteristics are normal. There is no regional wall motion abnormalities. 2. The left atrium is normal size, normal function. 3. The aortic valve is normal. ECHOCARDIOGRAM REPORT [id number] FEDERICO DÍAZ 4. The mitral valve is normal structurally with trace mitral regurgitation. 5. Tricuspid valve has mild tricuspid regurgitation, normal structurally. There is no pericardial effusion. 6. The pulmonic valve is normal. 7. The right atrium has normal size, normal function. 8. The right ventricle has mild right ventricular enlargement. CONCLUSIONS: The patient has evidence of left ventricular hypertrophy, otherwise normal echocardiogram. TRANSINT:[id number] Voice Confirmation ID: [id number] DOCUMENT ID: [id number] MITALI BATRES MD at 0834 CC: [id number] DICTATION DATE: 04/15/17 1445 PING PONG TABLE ASSEMBLER: 04/15/17 1509 ADM IN [place] [id number] [place] [id number]
--- NOTE | ~2017-04-15 | HEMODYNAMI ---
PATIENT:FEDERICO DÍAZ MEDICAL RECORD: [id number] : 65 [facility] ADMISSION DATE: 04/15/17 Generatedon:04/16/20178:25 Patient name: FEDERICO DÍAZ Patient #: [id number] SSN: D OB: 1965 Date of study: 04/16/2017 Page: Of Hemodynamic Procedure Report Patient Data Patient Demographics Procedure consent was obtained First Name: FEDERICO Gender: Female Last Name: ARJUN : 1965 [facility] Initial: J Age: 51 year(s) Patient #: [id number] Race: Additional ID: [id number] Contact details [address]: [address] [place] [address] State: [place] City: [place] Zip code: [address] Past Medical History Allergies Allergen Reaction Date Comments Reported Other 07/03/2014 hydrocodone, Latex, allergy Hydochlorothiazide, Wasp Venom Other 06/27/2016 HCTZ,Hydrocodone,latex,wasp allergy Other 12/27/2016 HYDROCODONE, LATEX, HCT2 allergy Other 04/16/2017 hydrochlorothiazide, allergy hydrocodone, latex, venom Admission Admission Data Admission Date: 04/15/2017 Admission Time: 7:44 Room #: D.2118 Procedure Procedure Types Cath Procedure Diagnostic Procedure [facility] w/Coronaries Miscellaneous Procedures Moderate Sedation up to 15 minutes Procedure Description Procedure Date Procedure Date: 04/16/2017 Procedure Start Time: 8:02 Procedure End Time: 8:22 Procedure Staff Name Function Raymundo Cody MD Performing Physician Sommer Miller RT Monitor Jennie Weldon RT Scrub Jessy Hdez RN Nurse Procedure Data Cath Procedure Fluoroscopy Diagnostic fluoroscopy Total fluoroscopy Time: 1.9 time: 1.9 min min Diagnostic fluoroscopy Total fluoroscopy dose: 332 dose: 332 mGy mGy Contrast Material Contrast Material Type Amount (ml) Isovue 300 31 Entry Location Entry Primary Successful Side Size Upsize Upsize Entry Closure Succes sful Closure Location (Fr) 1 (Fr) 2 (Fr) Remarks Device Remarks Femoral Right 5 Fr Exoseal artery Estimated blood loss: 5 ml Diagnostic catheters Device Type Used For End Catheter Placement MULTIPACK JL 4.0 5Fr Left Coronary catheter Angiography MULTIPACK 3DRC 5Fr Right Coronary catheter Angiography MULTIPACK Pigtail 5 Fr LV Angiography catheter Procedure Complications No complications Procedure Medications Medication Administration Route Dosage Phenergan I.V. 25 mg Pepcid I.V. 20 mg Oxygen NC 2 l/min Lidocaine 2% added to field 20 Heparin Flush Bag added to field 2 bags (1000units/500ml NS) 0.9% NaCl I.V. 100 ml/hr Versed I.V. 2 mg Fentanyl I.V. 50 mcg Hemodynamics Rest Heart Rate: 71 (bpm) Pressure Samples Time Site Value (mmHg) Purpose Heart Use Rate(bpm) 8:18 LV 153/5,15 EDP 75 Gradients Valve Time Site Site Mean SEP/DFP Peak To Heart Use 1 2 (mmHg) (sec/min) Peak Rate (mmHg) (bpm) Aortic 8:19 LV AO 70 Snapshots Pre Cath Intra NCS Post Cath Vital Signs Time Heart Resp SPO2 etCO2 NIBP (mmHg) Rhythm Pain Sedation Rate (ipm) (%) (mmHg) Status Level (bpm) 7:52:21 70 15 100 0 112/76(93) NSR 0 (11) 10(A) , No pain 7:57:04 69 33 99 37.6 113/69(104) NSR 0 (11) 10(A) , No pain 8:01:45 69 19 100 32.4 105/73(89) NSR 0 (11) 10(A) , No pain 8:06:27 69 17 100 23.3 110/63(86) NSR 0 (11) 10(A) , No pain 8:11:08 69 18 100 38.4 105/68(89) NSR 0 (11) 10(A) , No pain 8:15:48 69 17 100 37.6 103/69(88) NSR 0 (11) 10(A) , No pain 8:20:29 71 21 100 27.8 107/72(90) NSR 0 (11) 10(A) , No pain Medications Time Medication Route Dose Verified Delivered Reason Notes Eff ectiveness by by 7:50:03 Phenergan I.V. 25 mg Raymundo Buffie Per pt Escobar Hdez RN physician stated MD n\v with sedation 7:50:33 Pepcid I.V. 20 mg Raymundo Buffie Per pt Escobar Hdez RN physician stated MD n\v with sedation 7:57:12 Oxygen NC 2 Raymundo Buffie used for l/min Escobar Hdez RN procedure MD 7:57:25 Lidocaine 2% added 20ml Raymundo Raymundo for local to vial Escobar Cody MD anesthetic field MD 7:57:31 Heparin Flush added 2 Raymundo Raymundo used for Bag to bags Escobar Cody MD procedure (1000units/500ml field NS) 7:57:37 0.9% NaCl I.V. 100 Raymundo Buffie Per ml/hr Escobar Hdez RN physician 8:04:03 Versed I.V. 2 mg Raymundo Buffie for Escobar Hdez RN sedation 8:04:09 Fentanyl I.V. 50 Raymundo Buffie for mcg Escobar Hdez RN sedation Procedure Log Time Note 7:22:08 Time tracking: Regular hours 7:22:12 Plan of Care:Hemodynamics will remain stable., Cardiac rhythm will remain stable., Comfort level will be maintained., Respiratory function will remain adequate., Patient/ family verbilizes understanding of procedure., Procedure tolerated without complication., Recovers from procedure without complications.. 7:22:14 Signed procedure consent form obtained from patient. 7:29:13 Jessy Hdez RN sent for patient. Start room use. 7:44:49 Patient received from Med II to CCL 1 Alert and oriented. Tansferred to table in Supine position. 7:44:56 Warm blankets applied, and gabbi hugger turned on for patient comfort. 7:44:56 Correct patient and procedure confirmed by team. 7:44:57 ECG and BP/O2 sat monitors applied to patient. 7:50:03 Phenergan 25 mg I.V. was administered by Jessy Hdez RN; Per physician; pt stated n\v with sedation 7:50:33 Pepcid 20 mg I.V. was administered by Jessy Hdez RN; Per physician; pt stated n\v with sedation 7:51:28 Vital chart was started 7:51:29 Baseline sample Acquired. 7:51:41 Rhythm: sinus rhythm , paced 7:51:43 Full Disclosure recording started 7:52:38 H&P Date Dictated: 04/16/2017 New H&P dictated by physician.. 7:52:44 Pre-procedure instructions explained to patient. 7:52:45 Pre-op teaching completed and patient verbalized understanding. 7:52:46 Family in waiting room. 7:52:49 Patient NPO since Midnight. 7:57:12 Oxygen 2 l/min NC was administered by Jessy Hdez RN; used for procedure; 7:57:25 Lidocaine 2% 20ml vial added to field was administered by Raymundo Cody MD; for local anesthetic; 7:57:31 Heparin Flush Bag (1000units/500ml NS) 2 bags added to field was administered by Raymundo Cody MD; used for procedure; 7:57:37 0.9% NaCl 100 ml/hr I.V. was administered by Jessy Hdez RN; Per physician; 7:59:03 Patient allergic to Other allergyhydrochlorothiazide, hydrocodone, latex, venom 7:59:07 Is the patient allergic to Iodine/contrast media? No. 7:59:08 Was the patient premedicated? No 7:59:11 Is patient on blood thinner?Yes 7:59:14 ACC The patient was administered the following blood thiners within the last 24 hours: ACCPlavix 7:59:26 Patient diabetic? No. 7:59:40 Previous problem with sedation/anesthesia? No ? 7:59:41 Snore? Yes 7:59:43 Sleep apnea? No 7:59:44 Deviated septum? No 7:59:45 Opens mouth fully? Yes 7:59:45 Sticks out tongue? Yes 7:59:48 Airway obstruction? No ? 7:59:51 Dentures? No ? 7:59:55 Pre procedure: right dorsailis pedis pulse 1+ Palpable, but thready & weak; easily obliterated 7:59:58 Pre procedure: left dorsailis pedis pulse 1+ Palpable, but thready & weak; easily obliterated 8:00:02 Patient pain scale 0/10 ?. 8:00:23 IV patent on arrival in right forearm with 0.9% NaCl at KVO. 8:00:29 Lab results completed and on chart. 8:00:33 Right groin area was prepped with chlora-prep and draped in sterile fashion 8:00:33 Alarms reviewed by R. N. 8:00:34 Sharps counted by scrub and verified by R.N. 8:00:36 Physician arrived 8:00:36 --------ALL STOP TIME OUT------ 8:00:36 Final Timeout: patient, procedure, and site verified with staff and physician. All members of the team are in agreement. 8:00:40 Right groin site verified by team. 8:00:43 Physical assessment completed. ASA score P 2 - A patient with mild systemic disease as per Raymundo Cody MD. 8:00:47 Sedation plan: IV Moderate Sedation Medication:Versed, Fentanyl 8:00:52 Use device set Femoral Dx 8:00:54 ACIST Syringe (50239) opened to sterile field. 8:00:54 Bag Decanter (2002S) opened to sterile field. 8:00:55 Medline Cath Pack ([id number]) opened to sterile field. 8:00:55 SHEATH 5FR [place] (EDF361) opened to sterile field. 8:00:56 DIAGNOSTIC WIRE .035 260cm J wire (241927) opened to sterile field. 8:00:57 ACIST Hand Control (36953) opened to sterile field. 8:00:58 ACIST Manifold (02711) opened to sterile field. 8:00:58 DIAGNOSTIC Multipack 5Fr catheter set (TQ6219) opened to sterile field. 8:00:59 Tegaderm 4 x 4 (1626W) opened to sterile field. 8:01:00 MICROPUNCTURE 4FR Cook ([id number]) opened to sterile field. 8:02:23 Procedure started. 8:02:26 Local anesthetic to right femoral artery with Lidocaine 2% by Raymundo Cody MD.INITIAL ACCESS ONLY 8:03:03 Access obtained with 4Fr micropunture. 8:04:03 Versed 2 mg I.V. was administered by Jessy Hdez RN; for sedation; 8:04:09 Fentanyl 50 mcg I.V. was administered by Jessy Hdez RN; for sedation; 8:10:33 A 5 Fr sheath was inserted into the Right Femoral artery 8:11:08 A MULTIPACK JL 4.0 5Fr catheter was advanced over the wire and used for Left Coronary Angiography. 8:12:08 LCA angiography performed. 8:12:13 Injector settings: Ml/sec: 3, Volume: 6, 8:13:22 Catheter removed. 8:13:29 A MULTIPACK 3DRC 5Fr catheter was advanced over the wire and used for Right Coronary Angiography. 8:14:44 RCA angiography performed. 8:14:47 Injector settings: Ml/sec: 3, Volume: 6, 8:16:18 Catheter removed. 8:16:30 A MULTIPACK Pigtail 5 Fr catheter was advanced over the wire and used for LV Angiography. 8:19:14 LV hemodynamics recorded. 8:19:16 LV gram done using PENNY 8:19:19 Injector settings: Ml/sec: 5, Volume: 15, 8:19:27 Catheter removed. 8:19:30 EXOSEAL 5Fr (EX500) opened to sterile field. 8:19:42 Sheath removed intact; hemostasis achieved with Exoseal to the Right Femoral artery. 8:19:45 Procedure ended.(Physican Out) 8:20:56 Fluoroscopy time 01.90 minutes. 8:21:03 Fluoroscopy dose: 332 mGy 8:21:03 Flurop Dose total: 332 8:21:24 Contrast amount:Isovue 300 31ml. 8:21:26 Sharps counted by scrub and verified by R.N. 8:21:27 Insertion/operative site no bleeding no hematoma. 8:21:31 Post-op/insertion site Right Femoral artery dressed using a 4 x 4 and Tegaderm. 8:21:34 Post right femoral artery:stable 8:21:36 Post Procedure Pulses reassessed and unchanged 8:21:39 Post procedure rhythm: unchanged. 8:21:42 Estimated blood loss: 5 ml 8:21:44 Post procedure instruction explained to patient.Patient verbalizes understanding. 8:21:45 Patient needs reinforcement of post procedure teaching. 8:22:01 Procedure type changed to Cath procedure, Diagnostic procedure, LHC, LHC w/Coronaries, Miscellaneous Procedures, Moderate Sedation up to 15 minutes 8:22:02 Procedure and supply charges have been captured, reviewed, submitted and are correct. 8:22:07 Procedure Complication : No complications 8:22:11 Vital chart was stopped 8:22:12 See physician's report for complete and final results. 8:22:15 Report given to [facility]. 8:22:19 Patient transfered to [facility] with Stretcher. 8:22:22 Procedure ended. 8:22:22 Full Disclosure recording stopped 8:22:26 End room use (Document Last) Device Usage Item Name Manufacture Quantity Catalog Hospital Part Current Minimal Lot# / Number Charge Number Stock Stock Serial# Code ACIST Syringe Acist 1 [id number] [id number] 042272 212720 20 (94575) Medical Systems Inc Bag Decanter Microtek 1 2001S 379410 35280 707675 5 (2001S) Medical Inc. Medline Cath Cardinal 1 [id number] 208502 28238 586353 5 Pack Health ([id number]) SHEATH 5FR Terumo 1 [id number] 529531 385821 456925 40 [place] (YGA564) DIAGNOSTIC [facility] 1 429362 163976 772576 759810 30 WIRE .035 260cm J wire (357369) ACIST Hand Acist 1 16132 117578 644957 387393 5 Control Medical (03106) Systems Inc ACIST Acist 1 15651 506411 111582 550320 5 Manifold Medical (47273) Systems Inc DIAGNOSTIC Cardinal 1 EX8689 094773 17542 239923 30 Multipack 5Fr Health catheter set (BF5767) Tegaderm 4 x 3M 1 1626W 898171 722816 064298 5 4 (1626W) MICROPUNCTURE [employer] Medical 1 V39665 113779 615190 137966 5 4FR Cook (U95365) MULTIPACK JL Cardinal 1 017402 5 4.0 5Fr Health catheter MULTIPACK Cardinal 1 524757 5 3DRC 5Fr Health catheter MULTIPACK Cardinal 1 435547 5 Pigtail 5 Fr Health catheter EXOSEAL 5Fr Cardinal 1 EX500 015816 775144 229503 10 (EX500) Health Signature Audit [place] Stage Time Signature Unsigned Intra-Procedure 04/16/2017 Sommer Miller 8:25:08 AM RT(R) Signatures Monitor : Sommer Miller RT Signature : Date : Time : [facility] [address] [place] [address]
[2017-04-15 08:43] VITALS: BP 121/84; BMI 44.5
[2017-04-15] MEDS ORDERED: LOPRESSOR25 MG PO (10:33)
[2017-04-15] MEDS ORDERED: KLONOPIN0.5 MG PO (10:35)
[2017-04-15] MEDS ORDERED: ALDACTONE25 MG PO (10:40)
[2017-04-15] MEDS ORDERED: MAG-OX 400 MG400 MG PO (10:55)
[2017-04-15] MEDS ORDERED: AUGMENTIN 875-11 TAB PO (10:58)
[2017-04-15] MEDS ORDERED: ARICEPT10 MG PO (10:59)
[2017-04-15 11:42] LABS: CKMB 1.1 U/L (0.0-3.6); CREATINE KINASE 78 UL (21-215); PRO BNP 43 pg/mL (0-125); TROPONIN-I < 0.017 ng/mL (0.000-0.060)
[2017-04-15 12:23] LABS: ERYTHROCYTE SEDIMENTATION RATE 7 mm/hr (0-30)
[2017-04-15 22:15] VITALS: BP 99/65
[2017-04-16 01:30] VITALS: BP 83/42
[2017-04-16 06:20] VITALS: BP 85/55
[2017-04-16 07:37] LABS: BASOPHILS 0.4 % (0-2); EOSINOPHILS 7.3 % (0-7); HEMATOCRIT 34.3 % (36.0-48.0); HEMOGLOBIN 10.4 g/dL (12-16); IMMATURE GRANULOCYTES 0.1 % (0-5); LYMPHOCYTES 31.9 % (15-50); MCH 20.8 pg (26.0-34.0); MCHC 30.3 g/dL (31.0-37.0); MCV 68.5 fL (80.0-100.0); MEAN PLATELET VOLUME 9.6 fL (7.4-10.4); MONOCYTES 12.9 % (2-11); NEUTROPHILS 47.4 % (40-80); PLATELET COUNT 330 10x3/uL (130-400); RBC 5.01 10x6/uL (4.00-5.40); RDW 18.4 % (11.5-14.5); WBC 8.3 10x3/uL (4.8-10.8)
[2017-04-16 07:45] LABS: CALC OSMOLALITY 275 mosm/kg (275-300); CALCIUM 8.4 mg/dL (8.5-10.1); CARBON DIOXIDE 27.1 mmol/L (21.0-32.0); CHLORIDE - SERUM 104 mmol/L (98-107); CREATININE - SERUM 0.7 mg/dL (0.6-1.3); GLUCOSE 102 mg/dL (74-106); POTASSIUM - SERUM 3.7 mmol/L (3.5-5.1); SODIUM 138 mmol/L (136-145); UREA NITROGEN 13 mg/dL (7-18); eGFR NON AFRICAN AMERICAN > 90 mL/min (90-120)
[2017-04-16 12:06] VITALS: BP 114/68
== END 2017-04-16 15:55 | disposition home or self-care (01) | DRG 287 ==
LOC: D.M2 06:41
PROVIDERS: Internal Medicine Cardiovascular Disease
PROC: B2151ZZ Fluoroscopy of Left Heart using Low Osmolar Contrast (ICD-10-PCS; 2017-04-16)
PROC: 4A023N7 Measurement of Cardiac Sampling and Pressure, Left Heart, Percutaneous Approach (ICD-10-PCS; 2017-04-16)
PROC: B2111ZZ Fluoroscopy of Multiple Coronary Arteries using Low Osmolar Contrast (ICD-10-PCS; principal; 2017-04-16 07:29)
DX: R07.9 Chest pain, unspecified (principal); I50.30 Unspecified diastolic (congestive) heart failure; I25.10 Atherosclerotic heart disease of native coronary artery without angina pectoris; Z95.5 Presence of coronary angioplasty implant and graft; I11.0 Hypertensive heart disease with heart failure; E11.9 Type 2 diabetes mellitus without complications; I48.91 Unspecified atrial fibrillation; M32.9 Systemic lupus erythematosus, unspecified; K21.9 Gastro-esophageal reflux disease without esophagitis; Z87.891 Personal history of nicotine dependence

== ENCOUNTER 2017-11-28 23:35 | Outpatient (CLI) | payer BC, MEDICARE ==
[~2017-11-28] VITALS: Ht 157.5 cm; Wt 107.0 kg
--- NOTE | ~2017-11-28 | DS ---
PATIENT:FEDERICO CARO :65 MEDICAL RECORD: [id number] DISCHARGE SUMMARY ADMISSION DATE: 11/29/17 DISCHARGE DATE: 11/29/17 DATE OF SERVICE: 11/29/2017 DIAGNOSES: 1. Unstable angina. 2. Coronary artery disease. 3. Hypertension. 4. Hyperlipidemia. 5. Diabetes. HISTORY AND HOSPITAL COURSE: Ms. Caro presents with anginal symptomatology. Underwent PTCA and stent of the LAD. Discharged home with no change in her medications as she is already on aspirin and Plavix. Will follow up with [facility] in 1 month. TRANSINT:[id number] Voice Confirmation ID: [id number] DOCUMENT ID: [id number] NERI GAVIN MD at 0924 CC: [id number] DICTATION DATE: 11/29/17924 VEHICLE TECHNICIAN: 11/29/17 2319 DIS IN 11/29/17 [facility] [address] [place] [address]
--- NOTE | ~2017-11-28 | HP ---
PATIENT: FEDERICO CARO MEDICAL RECORD: [id number] ACCOUNT: [id number] LOCATION:[address] : 65 ADMISSION DATE: 11/29/17 PCP: No PCP HISTORY AND PHYSICAL EXAMINATION DIAGNOSES: 1. Unstable angina. 2. Coronary artery disease. 3. Previous PTCA and stent. 4. Chronic obstructive pulmonary disease. 5. Smoking history. 6. Recent abnormal nuclear stress test. 7. Hypertension. HISTORY OF PRESENT ILLNESS: Ms. Caro presents with anginal symptomatology. She was actually seen in our office, set for nuclear stress test which was abnormal. She was set for cardiac catheterization next week; however, she is having increasing episodes of chest pain compatible with angina. REVIEW OF SYSTEMS: The patient reports easy bruising but reports no swollen glands. The patient reports no fever, no night sweats, no significant weight gain, no significant weight loss. No significant exercise tolerance. The patient reports no dry eyes, no irritation, no vision change. Patient reports no difficulty hearing and no ear pain. Patient reports no frequent nose bleeds or nose and sinus problems. Patient reports on arm pain on exertion. No shortness of breath while lying down. No history of heart murmur. Patient reports no cough, no wheezing or coughing up blood. Patient reports no abdominal pain, no vomiting. Normal appetite. No diarrhea and not vomiting blood. No nausea and no constipation. Patient reports no incontinence. No difficulty urinating. No hematuria. No increased frequency. Patient reports no muscle aches. No weakness, no arthralgias, no back pain. No swelling of the extremities. Patient reports no abnormal mole, no jaundice, no rashes. Reports no loss of consciousness. No weakness and no numbness. No seizures, dizziness, or headaches. The patient reports no depression, no sleep disturbance, feeling safe in a relationship and no alcohol abuse. Patient reports on fatigue. Reports no runny nose or sinus pressure. No itching, no hives, and no frequent sneezing. PHYSICAL EXAMINATION: GENERAL APPEARANCE: Well-nourished, well-developed, appears stated age. Level of distress, comfortable. PSYCHIATRIC: Mental status, alert, normal affect. Orientation, oriented to time, place and person. EYES: Lids and conjunctiva, noninjected. No discharge, no pallor. ENT: Lips, teeth, gums, normal dentition. Oropharynx, no cyanosis, no pallor. NECK: Carotid arteries, bilateral normal upstroke, no bruits, no thrills. JUGULAR VEINS: No jugular venous pressure or distention. CERVICAL LYMPH NODES: Nontender, nonenlarged. THYROID: Not enlarged. Nontender. No nodules. LUNGS: Respiratory effort, unlabored. CHEST: Normal curvature. No thoracic deformity. No chest wall tenderness. Percussion, resonant. Auscultation, clear. No wheezes, no rales, no rhonchi. CARDIOVASCULAR: Precordial exam, nondisplaced. No heaves or pericardial thrills. Rate and rhythm, regular. Heart sounds, normal S1, normal S2. No S3, no gallop, no rub. Systolic murmur, not heard. Diastolic murmur, not heard. HISTORY AND PHYSICAL [id number] FEDERICO CARO EXTREMITIES: No cyanosis, no edema. Peripheral pulses, full and equal in all extremities, except as noted. No bruits appreciated. ABDOMEN: Soft, nondistended. Normal aorta. No bruit. Nontender. No masses. Liver, nontender, no hepatomegaly. Spleen, nontender, no splenomegaly. MUSCULOSKELETAL: No joint tenderness. No joint swelling. No erythema. NEUROLOGICAL: Normal gait, normal strength, normal tone. SKIN: Warm and dry. OVERALL IMPRESSION: Anginal symptomatology. We will proceed with coronary angiography. Further care depends upon findings of the angiography. TRANSINT:[id number] Voice Confirmation ID: [id number] DOCUMENT ID: [id number] NERI GAVIN MD at 0924 CC: [id number] DICTATION DATE: 11/29/17722 LITERATURE TEACHER: 11/29/17 0755 DIS IN 11/29/17 [id number] [place] [address]
--- NOTE | ~2017-11-28 | HEMODYNAMI ---
PATIENT:FEDERICO DÍAZ MEDICAL RECORD: [id number] : 65 LOCATION:D. D.2136 ADMISSION DATE: 11/29/17 Generatedon:11/29/20179:23 Patient name: FEDERICO DÍAZ Patient #: [id number] SSN: D OB: 1965 Date of study: 11/29/2017 Page: Of Hemodynamic Procedure Report Patient Data Patient Demographics Procedure consent was obtained First Name: FEDERICO Gender: Female Last Name: ARJUN : 1965 [facility] Initial: J Age: 52 year(s) Patient #: [id number] Race: Additional ID: [id number] Contact details [address]: [address] [place] [address] State: [place] City: [place] Zip code: [address] Past Medical History Allergies Allergen Reaction Date Comments Reported Other 07/03/2014 hydrocodone, Latex, allergy Hydochlorothiazide, Wasp Venom Other 06/27/2016 HCTZ,Hydrocodone,latex,wasp allergy Other 12/27/2016 HYDROCODONE, LATEX, HCT2 allergy Other 04/16/2017 hydrochlorothiazide, allergy hydrocodone, latex, venom Other 11/29/2017 HCTZ, [place], Latex, allergy Topamax, Wasp Admission Admission Data Admission Date: 11/29/2017 Admission Time: 2:01 Room #: D.2136 Lab Results Lab Result Date: 11/29/2017 Lab Result Time: 0:00 Biochemistry Name Units Result Min Max BUN mg/dl 14 --(--*-)-- 7 18 Creatinine mg/dl 0.9 --(-*--)-- 0.6 1.3 CBC Name Units Result Min Max Hemoglobin g/dl 11.1 *-(----)-- 13.5 17.5 Procedure Procedure Types Cath Procedure Diagnostic Procedure LHC LH w/Coronaries PCI Procedure Coronary Stent Coronary Stent Initial Procedure Description Procedure Date Procedure Date: 11/29/2017 Procedure Start Time: 9:09 Procedure End Time: 9:21 Procedure Staff Name Function William Lopez MD Performing Physician Tawanda Kwon RT Monitor Sommer Miller RT Scrub Denzel Cunningham RN Nurse Procedure Data Cath Procedure Fluoroscopy Diagnostic fluoroscopy Total fluoroscopy Time: 2.5 time: 2.5 min min Diagnostic fluoroscopy Total fluoroscopy dose: 554 dose: 554 mGy mGy Contrast Material Contrast Material Type Amount (ml) Isovue 300 75 Entry Location Entry Primary Successful Side Size Upsize Upsize Entry Closure Succes sful Closure Location (Fr) 1 (Fr) 2 (Fr) Remarks Device Remarks Femoral Right 5 Fr 6 Fr Exoseal artery Short Diagnostic catheters Device Type Used For End Catheter Placement MULTIPACK Pigtail 5 Fr LV Angiography catheter MULTIPACK JL 4.0 5Fr Left Coronary catheter Angiography MULTIPACK 3DRC 5Fr Right Coronary catheter Angiography Procedure Complications No complications Procedure Medications Medication Administration Route Dosage Plavix 75 mg Oxygen etCO2 Nasal cannula 2 l/min Heparin Flush Bag added to field 2 bags (1000units/500ml NS) 0.9% NaCl I.V. 100 ml/hr Fentanyl I.V. 100 mcg Versed I.V. 2 mg Fentanyl I.V. 100 mcg Versed I.V. 2 mg Fentanyl I.V. 50 mcg Heparin Bolus I.V. 4000 units Fentanyl I.V. 50 mcg Hemodynamics Rest Heart Rate: 70 (bpm) Pressure Samples Time Site Value (mmHg) Purpose Heart Use Rate(bpm) 9:11 AO 89/14(36) Snapshot 70 Snapshots Pre Cath Intra NCS Post Cath Vital Signs Time Heart Resp SPO2 etCO2 NIBP Rhythm Pain Sedation Rate (ipm) (%) (mmHg) (mmHg) Status Level (bpm) 8:48:05 69 17 99 35 108/74(87) NSR 0 (11) 10(A) , No pain 8:52:21 69 16 100 31.3 106/68(83) NSR 0 (11) 10(A) , No pain 8:56:35 69 16 99 39.5 103/74(92) NSR 0 (11) 10(A) , No pain 9:00:49 69 17 97 37.2 104/65(80) NSR 0 (11) 10(A) , No pain 9:05:03 69 17 95 41 104/66(79) NSR 0 (11) 10(A) , No pain 9:09:17 72 17 99 41 99/65(75) NSR 0 (11) 10(A) , No pain 9:13:31 69 17 94 39.5 97/61(77) NSR 0 (11) 9(A) , No pain 9:17:43 69 17 95 41 99/61(74) NSR 0 (11) 9(A) , No pain 9:21:45 69 17 95 41.7 105/63(74) NSR 0 (11) 9(A) , No pain Medications Time Medication Route Dose Verified Delivered Reason Notes Effectiveness by by 8:38:42 Plavix 75 mg William Denzel Per physician Jessica Cunningham RN 8:38:49 Oxygen etCO2 2 William Denzel Per physician Nasal l/min Jessica Cunningham RN cannula 8:39:00 Heparin Flush added 2 William Denzel used for Bag to bags Jessica Cunningham RN procedure (1000units/500ml field NS) 8:39:08 0.9% NaCl I.V. 100 William Joyy Per physician ml/hr Jessica Cunningham RN 9:08:14 Fentanyl I.V. 100 William Denzel for sedation mcg Jessica Cunningham RN 9:08:21 Versed I.V. 2 mg William Denzel for sedation Jessica Cunningham RN 9:10:12 Fentanyl I.V. 100 William Denzel for sedation mcg Jessica Cunningham RN 9:10:16 Versed I.V. 2 mg William Denzel for sedation Jessica Cunningham RN 9:15:53 Fentanyl I.V. 50 William Denzel for sedation mcg Jessica Cunningham RN 9:16:23 Heparin Bolus I.V. 4000 William Denzel for units Jessica Cunningham RN anticoagulation 9:16:39 Fentanyl I.V. 50 William Denzel for sedation mcg Jessica Cunningham RN Procedure Log Time Note 8:11:00 Tawanda MONSALVE(R) sent for patient. Start room use. 8:11:01 Time tracking: Regular hours (M-F 7:00 - 5:00) 8:11:05 Plan of Care:Hemodynamics will remain stable., Cardiac rhythm will remain stable., Comfort level will be maintained., Respiratory function will remain adequate., Patient/ family verbilizes understanding of procedure., Procedure tolerated without complication., Recovers from procedure without complications.. 8:24:56 Lab Result : Hemoglobin 11.1 g/dl 8::56 Lab Result : Creatinine 0.9 mg/dl 8:24:56 Lab Result : BUN 14 mg/dl 8:36:16 Patient received from Med II to CCL 1 Alert and oriented. Tansferred to table in Supine position. 8:36:17 Warm blankets applied, and gabbi hugger turned on for patient comfort. 8:36:18 Correct patient and procedure confirmed by team. 8:36:19 Signed procedure consent form obtained from patient. 8:36:20 ECG and BP/O2 sat monitors applied to patient. 8:36:21 Pre-procedure instructions explained to patient. 8:36:21 Pre-op teaching completed and patient verbalized understanding. 8:36:27 H&P Date Dictated: 11/29/2017 Within 30 days and on chart.. 8:36:30 Family in patients room. 8:36:31 Patient NPO since Midnight. 8:37:01 Patient allergic to Other allergyHCTZ, [place], Latex, Topamax, Wasp 8:37:03 Is the patient allergic to Iodine/contrast media? No. 8:37:05 Is patient on blood thinner?Yes 8:37:08 ACC The patient was administered the following blood thiners within the last 24 hours: ACCPlavix 8:37:13 Diagnostic Cath status Elective 8:38:42 Plavix 75 mg was administered by Denzel Cunningham RN; Per physician; 8:38:49 Oxygen 2 l/min etCO2 Nasal cannula was administered by Denzel Cunningham RN; Per physician; 8:39:00 Heparin Flush Bag (1000units/500ml NS) 2 bags added to field was administered by Denzel Cunningham RN; used for procedure; 8:39:08 0.9% NaCl 100 ml/hr I.V. was administered by Denzel Cunningham RN; Per physician; 8:40:10 Vital chart was started 8:42:20 Patient diabetic? Yes. 8:42:24 If diabetic: On Metformin? No 8:42:25 ----Pre-sedation anethsthesia assessment.---- 8:42:28 Previous problem with sedation/anesthesia? No ? 8:42:30 Snore? Yes 8:42:32 Sleep apnea? Yes 8:42:33 Deviated septum? No 8:42:35 Opens mouth fully? Yes 8:42:36 Sticks out tongue? Yes 8:42:41 Airway obstruction? Yes COPD 8:42:45 Dentures? Yes OUT 8:42:49 Pre procedure: right dorsailis pedis pulse 1+ Palpable, but thready & weak; easily obliterated 8:42:53 Patient pain scale 0/10 ?. 8:43:00 IV patent on arrival in left forearm with 0.9% NaCl at 10ml/hr. 8:43:05 Lab results completed and on chart. 8:43:08 Right groin area was prepped with chlora-prep and draped in sterile fashion 8:43:09 Alarms reviewed by Halina N. 8:43:10 Sharps counted by scrub and verified by RShannonN. 8:43:11 Physician paged 9:05:54 Physician arrived 9:05:54 --------ALL STOP TIME OUT------ 9:05:55 Final Timeout: patient, procedure, and site verified with staff and physician. All members of the team are in agreement. 9:05:56 Right groin site verified by team. 9:06:00 Physical assessment completed. ASA score P 2 - A patient with mild systemic disease as per William Lopez MD. 9:06:05 Sedation plan: IV Moderate Sedation Medication:Versed, Fentanyl 9:08:14 Fentanyl 100 mcg I.V. was administered by Denzel Cunningham RN; for sedation; 9:08:21 Versed 2 mg I.V. was administered by Denzel Cunningham RN; for sedation; 9:08:55 Zero performed for pressure channel P1 9:09:02 Use device set Femoral Dx 9:09:03 ACIST Syringe (78281) opened to sterile field. 9:09:03 Bag Decanter (2002) opened to sterile field. 9:09:04 Medline Cath Pack ([id number]) opened to sterile field. 9:09:04 DIAGNOSTIC WIRE .035 260cm J wire (752765) opened to sterile field. 9:09:06 ACIST Hand Control (37946) opened to sterile field. 9:09:06 ACIST Manifold (19008) opened to sterile field. 9:09:06 DIAGNOSTIC Multipack 5Fr catheter set ([id number]) opened to sterile field. 9:09:08 Tegaderm 4 x 4 (1626W) opened to sterile field. 9:09:12 SHEATH Prelude 5Fr 0.035 ([id number]-8U-73-035) opened to sterile field. 9:09:15 Procedure started. 9::15 Full Disclosure recording started 9:09:30 Local anesthetic to right femoral artery with Lidocaine 2% by William Lopez MD.INITIAL ACCESS ONLY 9:09:39 A 5 Fr sheath was inserted into the Right Femoral artery 9:09:45 A MULTIPACK Pigtail 5 Fr catheter was advanced over the wire and used for LV Angiography. 9:09:49 LV angiography performed. 9:09:52 LV gram done using PENNY 9:10:12 Fentanyl 100 mcg I.V. was administered by Denzel Cunningham RN; for sedation; 9::16 Versed 2 mg I.V. was administered by Denzel Cunningham RN; for sedation; 9:11:17 EF : 55 % 9:11:22 Catheter removed. 9:11:28 A MULTIPACK JL 4.0 5Fr catheter was advanced over the wire and used for Left Coronary Angiography. 9:11:50 LCA angiography performed. 9:13:05 Catheter removed. 9:13:17 A MULTIPACK 3DRC 5Fr catheter was advanced over the wire and used for Right Coronary Angiography. 9:13:21 RCA angiography performed. 9:13:23 Catheter removed. 9:14:49 INFLATOR Merit BasixCompak (WT9562) opened to sterile field. 9:14:49 SHEATH 6FR Hanna (BKN998) opened to sterile field. 9:14:49 GUIDE 6FR XBLAD 3.5 catheter ([id number]) opened to sterile field. 9:14:50 CHOICE PT Extra Support 182cm wire ([id number]) opened to sterile field. 9:14:58 Sheath upsized to a 6 Fr Short. 9:15:07 6 Fr XBLAD 3.5 guide catheter was inserted over the wire 9:15:12 CPTES wire advanced. 9:15:53 Fentanyl 50 mcg I.V. was administered by Denzel Cunningham RN; for sedation; 9:16:23 Heparin Bolus 4000 units I.V. was administered by Denzel Cunningham RN; for anticoagulation; 9:16:39 Fentanyl 50 mcg I.V. was administered by Denzel Cunningham RN; for sedation; 9:17:27 Procedure type changed to Cath procedure, Diagnostic procedure, LHC, LHC w/Coronaries, PCI procedure, Coronary Stent, Coronary Stent Initial 9:17:40 Place stent Inflation Number: 1 A HERBERT RX 3.0 x 38 stent ([id number]) was prepped and advanced across the Mid LAD. The stent was deployed at 15 MEGAN for 0:10 (min:sec). 9:18:11 Inflation number: 2 The stent balloon was then re-inflated across the Mid LAD to 17 MEGAN for 0:10 (min:sec). 9:18:30 Stent catheter was removed intact over wire. 9:18:30 Wire removed. 9:18:34 Guide catheter removed. 9:18:48 Contrast amount:Isovue 300 75ml. 9:18:55 Sheath removed intact; hemostasis achieved with Exoseal to the Right Femoral artery. 9:19:04 EXOSEAL 6Fr (EX600) opened to sterile field. 9:19:07 Procedure ended.(Physican Out) 9:20:46 Fluoroscopy time 02.50 minutes. 9:20:50 Flurop Dose total: 554 9:20:50 Fluoroscopy dose: 554 mGy 9:20:51 Sharps counted by scrub and verified by R.N. 9:20:52 Insertion/operative site no bleeding no hematoma. 9:20:54 Post-op/insertion site Right Femoral artery dressed using a 4 x 4 and Tegaderm. 9:20:57 Post right femoral artery:stable 9:20:58 Post Procedure Pulses reassessed and unchanged 9:21:00 Post procedure: right dorsailis pedis pulse 1+ Palpable, but thready & weak; easily obliterated. 9:21:03 Post procedure rhythm: sinus rhythm 9:21:04 Post procedure instruction explained to patient.Patient verbalizes understanding. 9:21:05 Procedure and supply charges have been captured, reviewed, submitted and are correct. 9:21:19 Procedure Complication : No complications 9:21:21 Vital chart was stopped 9:21:22 See physician's report for complete and final results. 9:21:25 Report given to PCU. 9:21:29 Patient transfered to PCU with Stretcher. 9:21:31 Procedure ended. 9:21:31 Full Disclosure recording stopped 9:21:37 ACC-PCI Only Patient was given prescriptions, or instructed by William Lopez MD to start/continue the following medications upon discharge: Plavix 9:21:39 End room use (Document Last) Intervention Summary Intervention Notes Time ActionType Lesion and Equipment Used Action# Pressure Duration Attributes 9:17:40 Place stent Mid LAD HERBERT RX 3.0 x 1 15 00:10 38 stent ([id number]) 9:18:11 Reinflate Mid LAD HERBERT RX 3.0 x 2 17 00:10 stent 38 stent balloon ([id number]) Device Usage Item Name Manufacture Quantity Catalog Number Hospital Part Current Minimal Lot# / Charge Number Stock Stock Serial# Code ACIST Syringe Acist 1 [id number] [id number] [id number] [id number] 20 (57865) Medical Systems Inc Bag Decanter Microtek 1 508270 12153 227970 5 () Medical Inc. Medline Cath Cardinal 1 [id number] 376432 62896 845703 5 Tappx Health ([id number]) DIAGNOSTIC WIRE [facility] 1 875243 928772 784394 369683 30 .035 260cm J wire (968829) ACIST Hand Acist 1 27572 058278 935050 021251 5 Control (39948) Medical Systems Inc ACIST Manifold Acist 1 08410 130370 535941 079034 5 (64548) [employer] Systems Inc DIAGNOSTIC Cardinal 1 [id number] 618437 94977 912367 30 Multipack 5Fr Health catheter set (AT5193) Tegaderm 4 x 4 3M 1 1626W 874302 207324 264009 5 (1626W) SHEATH Prelude Merit 1 [id number]-8P-02-035 788169 907880 711982 5 5Fr 0.035 Medical (UMD-7D-79-035) MULTIPACK Cardinal 1 042077 5 Pigtail 5 Fr Health catheter MULTIPACK JL Cardinal 1 612777 5 4.0 5Fr Health catheter MULTIPACK 3DRC Cardinal 1 453733 5 5Fr catheter Health INFLATOR Merit Merit 1 [id number] 295874 383533 069238 15 StartupMojo (HD5181) SHEATH 6FR Terumo 1 CAJ432 258103 235789 134313 40 Hanna (AAZ566) GUIDE 6FR XBLAD Cardinal 1 [id number] 059815 138429 209732 10 3.5 catheter Health ([id number]) CHOICE PT Extra [place] 1 [id number] 662236 990119 228247 5 Support 182cm Scientific wire ([id number]) HERBERT RX 3.0 x Medtronic 1 [id number] 470594 2908587 325319 5 [id number] 38 stent ([id number]) EXOSEAL 6Fr Cardinal 1 EX600 853355 489370 448955 10 (EX600) Health Signature Audit [place] Stage Time Signature Unsigned Intra-Procedure 11/29/2017 Tawanda MONSALVE(Nia) 9:23:56 AM Signatures Monitor : Tawanda Kwon RT Signature : Date : Time : [place] [id number] [place] [address]
--- NOTE | ~2017-11-28 | OP ---
PATIENT NAME: FEDERICO DÍAZ MEDICAL RECORD: [id number] :65 LOCATION:D.M2 D.2136 ADMISSION DATE:11/29/17 SURGEON: NERI GAVIN MD DATE OF OPERATION: 11/29/2017 PROCEDURES: 1. PTCA stent LAD. 2. Left heart catheterization. 3. Selective coronary angiography. 4. Left ventriculogram. INDICATION: Angina and coronary artery disease. PROCEDURE IN DETAIL: After informed consent was obtained and after a detailed description of the risks, benefits as well as alternative therapies, the patient elected to proceed with angiogram and angioplasty. The right femoral area was prepped and draped in normal sterile fashion. Right femoral artery was cannulated via modified Seldinger technique with placement of 6-Sammarinese sheath. All catheters exchanged through this sheath. FINDINGS: The left ventriculogram was performed in standard 30-degree PENYN view, reveals good cardiac wall motion throughout all segments. Overall ejection fraction estimated 60%. SELECTIVE CORONARY ANGIOGRAPHY: 1. Left main is with no significant angiographic disease. 2. Left anterior descending has previously placed stents with 75% in-stent restenosis. 3. Left circumflex has moderate irregularities, but no flow-limiting stenosis. 4. Right coronary artery has moderate irregularities, but no flow-limiting stenosis. PTCA STENT OF THE LAD: The stent used is a 3.0 x 38 mm Wilson. Result was 0% residual stenosis. OVERALL IMPRESSION: Successful percutaneous transluminal coronary angioplasty stent of the left anterior descending for in-stent restenosis going from 75% initial stenosis to 0% residual. TRANSINT:[id number] Voice Confirmation ID: [id number] DOCUMENT ID: [id number] NERI GAVIN MD at 0924 CC: [id number] DICTATION DATE: 11/29/17 0926 CHEMICAL ENGINEERING PROFESSOR: 11/29/17 1049 DIS IN 11/29/17 [id number] [place] [address]
[~2017-11-28 23:35] MED LIST changes: +ALDACTONE25 MG PO; +ARICEPT10 MG PO; +AUGMENTIN 875-11 TAB PO; +KLONOPIN0.5 MG PO; +LOPRESSOR25 MG PO; +MAG-OX 400 MG400 MG PO
[2017-11-29 01:26] LABS: CKMB 1.3 U/L (0.0-3.6); CREATINE KINASE 102 UL (21-215); TROPONIN-I < 0.017 ng/mL (0.000-0.060)
[2017-11-29] MEDS ORDERED: BUTALB-APAP-CA1 EACH PO (02:13)
[2017-11-29] MEDS ORDERED: ROBAXIN500 MG PO (02:37)
[2017-11-29] MEDS ORDERED: PROMETRIUM200 MG PO (02:38)
[2017-11-29] MEDS ORDERED: THYROID PO (02:46)
[2017-11-29] MEDS ORDERED: CATAPRES0.1 MG PO (02:47)
[2017-11-29] MEDS ORDERED: ISOSORBIDE MONO30 M1 PO (02:50)
[2017-11-29 03:36] VITALS: BP 106/56; Ht 157.5 cm; Wt 107.0 kg
[2017-11-29 06:18] VITALS: BP 99/66
[2017-11-29 06:57] LABS: CREATINE KINASE 99 UL (21-215); TROPONIN-I < 0.017 ng/mL (0.000-0.060)
[2017-11-29 07:51] LABS: BASOPHILS 0.2 % (0-2); EOSINOPHILS 3.1 % (0-7); HEMATOCRIT 35.8 % (36.0-48.0); HEMOGLOBIN 11.1 g/dL (12-16); IMMATURE GRANULOCYTES 0.2 % (0-5); LYMPHOCYTES 39.5 % (15-50); MCV 74.3 fL (80.0-100.0); MEAN PLATELET VOLUME 9.4 fL (7.4-10.4); PLATELET COUNT 339 10x3/uL (130-400); RBC 4.82 10x6/uL (4.00-5.40); WBC 9.9 10x3/uL (4.8-10.8)
[2017-11-29 07:57] LABS: ANION GAP 12.9 mmol/L (8-16); CALCIUM 8.8 mg/dL (8.5-10.1); CARBON DIOXIDE 27.4 mmol/L (21.0-32.0); CREATININE - SERUM 0.9 mg/dL (0.6-1.3); POTASSIUM - SERUM 4.3 mmol/L (3.5-5.1)
[2017-11-29 13:32] LABS: CKMB 1.1 U/L (0.0-3.6); CREATINE KINASE 112 UL (21-215); TROPONIN-I < 0.017 ng/mL (0.000-0.060)
== END 2017-11-29 15:08 | disposition home or self-care (01) ==
LOC: OBSVTIME → D.ER 23:35 → D.OPS 23:35 → D.M2 11-29 02:01 → D.ER 11-29 02:01 → D.M2 11-29 02:01 → OBSVTIME 11-29 02:01 → D.ER 11-29 02:10 → EDSTATUS 11-29 08:00 → D.OPS 11-29 15:08 → D.M2 11-29 15:08
PROVIDERS: Family Medicine; Internal Medicine Interventional Cardiology
DX: I25.110 Atherosclerotic heart disease of native coronary artery with unstable angina pectoris (principal); Z95.5 Presence of coronary angioplasty implant and graft; I10 Essential (primary) hypertension; J44.9 Chronic obstructive pulmonary disease, unspecified; E78.5 Hyperlipidemia, unspecified; E11.9 Type 2 diabetes mellitus without complications; T82.855A Stenosis of coronary artery stent, initial encounter; Y83.8 Other surgical procedures as the cause of abnormal reaction of the patient, or of later complication, without mention of misadventure at the time of the procedure

== ENCOUNTER 2018-10-30 00:02 | Observation (INO) | payer BC, MEDICARE ==
[~2018-10-30] VITALS: Ht 157.5 cm; Wt 115.9 kg
--- NOTE | ~2018-10-30 | HEMODYNAMI ---
PATIENT:FEDERICO DÍAZ MEDICAL RECORD: [id number] : 65 LOCATION:[facility] [address] [place], [place] [address]T# [id number] ADMISSION DATE: 10/30/18 Generatedon:10/30/201815:10 Patient name: FEDERICO DÍAZ Patient #: [id number] SSN: [id number] : 1965 Date of study: 10/30/2018 Page: Of Hemodynamic Procedure Report Patient Data Patient Demographics Procedure consent was obtained First Name: FEDERICO Gender: Female Last Name: ARJUN : 1965 [facility] Initial: J Age: 53 year(s) Patient #: [id number] Race: SSN: [id number] Additional ID: [id number] Contact details [address]: [address] [place] [address] State: [place] City: [place] Zip code: [address] Past Medical History Allergies Allergen Reaction Date Comments Reported Other 07/03/2014 hydrocodone, Latex, allergy Hydochlorothiazide, Wasp Venom Other 06/27/2016 HCTZ,Hydrocodone,latex,wasp allergy Other 12/27/2016 HYDROCODONE, LATEX, HCT2 allergy Other 04/16/2017 hydrochlorothiazide, allergy hydrocodone, latex, venom Other 11/29/2017 HCTZ, [place], Latex, allergy Topamax, Wasp Other 10/30/2018 HYDROCODONE, allergy HYDROCHLOROTHIZIDE, TOPIRAMATE, LATEX, VENOM( WASP) Admission Admission Data Admission Date: 10/30/2018 Admission Time: 1:12 Arrival Date: 10/30/2018 Arrival Time: 0:00 Room #: D[facility] Insurance Payor: Private health insurance [facility] #: [id number] Height (in.): 61.81 BSA: 2.12 (m2) Height (cm.): 157 BMI: 47.06 (kg/m2) Weight (lbs.): 255.74 Weight (kg.): 116 Lab Results Lab Result Date: 10/30/2018 Lab Result Time: 0:00 Biochemistry Name Units Result Min Max BUN mg/dl 11 --(-*--)-- 7 18 Creatinine mg/dl 1 --(--*-)-- 0.6 1.3 eGFR ml/min 61.27784 *-(----)-- 90 120 NONAFRICAN CBC Name Units Result Min Max Hematocrit % 34 *-(----)-- 42 54 Hemoglobin g/dl 10.4 *-(----)-- 13.5 17.5 Procedure Procedure Types Cath Procedure Diagnostic Procedure LHC [facility] w/Coronaries Sedation Charges Moderate Sedation up to 15 minutes PCI Procedure PTCA PTCA Initial Peripheral Cath Diagnostic Procedure Laborer Brush Clearing Peripheral Procedures Four Vessel Arteriogram Procedure Description Procedure Date Procedure Date: 10/30/2018 Procedure Start Time: 14:37 Procedure End Time: 15:03 Procedure Staff Name Function Jarrod Perez MD Performing Physician Jennie Weldon RT Monitor Carlee Celaya RT Scrub Davis Caldwell RN Nurse Dony Treviño RT Field Control Inspector Indication CAD Angina Procedure Data Cath Procedure Fluoroscopy Diagnostic fluoroscopy Total fluoroscopy Time: 6 time: 6 min min Diagnostic fluoroscopy Total fluoroscopy dose: 992 dose: 992 mGy mGy Contrast Material Contrast Material Type Amount (ml) Isovue 300 153 Entry Location Entry Primary Successful Side Size Upsize Upsize Entry Closure Succes sful Closure Location (Fr) 1 (Fr) 2 (Fr) Remarks Device Remarks Femoral Right 5 Fr 6 Fr Exoseal artery Short Estimated blood loss: 10 ml Diagnostic catheters Device Type Used For End Catheter Placement MULTIPACK JL 4.0 5Fr Procedure catheter MULTIPACK 3DRC 5Fr Procedure catheter MULTIPACK Pigtail 5 Fr Procedure catheter Procedure Complications No complications Procedure Medications Medication Administration Route Dosage 0.9% NaCl I.V. 100 ml/hr Oxygen etCO2 Nasal cannula 2 l/min Heparin Flush Bag added to field 2 bags (1000units/500ml NS) Lidocaine 2% added to field 20 Versed I.V. 2 mg Fentanyl I.V. 100 mcg Heparin Bolus I.V. 5000 units Hemodynamics Rest BSA: 2.12 (m2) HGB: 10.4 (g/dl) O2 Consumption: Estimated: 205.87 (ml/min) O2 Co nsumption indexed: Estimated:97.11 (ml/min/m) Heart Rate: 71 (bpm) Pressure Samples Time Site Value (mmHg) Purpose Heart Use Rate(bpm) 14:47 LV 94/11,15 Snapshot 65 14:48 AO 105/61(80) Pullback 73 14:48 LV 93/9,16 Pullback 73 Gradients Valve Time Site 1 Site 2 Mean SEP/DFP Peak To Heart Use (mmHg) (sec/min) Peak Rate (mmHg) (bpm) Aortic 14:48 LV AO 0 8 0 73 93/9,16 105/61(80) Calculations Valve P-P Mean Valve Index Valve Source Name Gradient Area Flow (cm2) Aortic 0 0 0 0 Snapshots Pre Cath Intra NCS Post Cath Vital Signs Time Heart Resp SPO2 etCO2 NIBP Rhythm Pain Sedation Rate (ipm) (%) (mmHg) (mmHg) Status Level (bpm) 14:30:13 69 15 99 39.8 99/58(73) NSR 0 (11) 10(A) , No pain 14:34:29 69 11 95 39.1 83/49(65) NSR 0 (11) 10(A) , No pain 14:38:36 70 14 96 19.5 98/57(78) NSR 0 (11) 10(A) , No pain 14:42:51 69 30 98 42.1 88/56(75) NSR 0 (11) 10(A) , No pain 14:47:00 74 33 96 44.4 91/58(72) NSR 0 (11) 10(A) , No pain 14:51:13 69 27 96 44.3 86/52(66) NSR 0 (11) 10(A) , No pain 14:55:22 69 39 98 42.8 83/52(69) NSR 0 (11) 10(A) , No pain 14:59:28 69 11 98 42.9 99/62(78) NSR 0 (11) 10(A) , No pain 15:03:38 69 20 97 42.1 88/61(71) NSR 0 (11) 10(A) , No pain Medications Time Medication Route Dose Verified Delivered Reason Notes Effectiveness by by 14:29:23 0.9% NaCl I.V. 100 Davis Davis Per physician ml/hr Paulette Caldwell RN RN 14:29:33 Oxygen etCO2 2 Davis Davis for low 02 sats Nasal l/min Lorigan Lorigan cannula RN RN 14:29:43 Heparin Flush added 2 Davis Davis used for Bag to bags Paulette Caldwell procedure (1000units/500ml field RN RN NS) 14:29:53 Lidocaine 2% added 20ml Davis Davis for local to vial Paulette Caldwell anesthetic RN RN 14:37:59 Versed I.V. 2 mg Davis Davis for sedation Paulette Caldwell RN RN 14:38:07 Fentanyl I.V. 100 Davis Davis for sedation mcg Paulette Caldwell RN RN 14:51:09 Heparin Bolus I.V. 5000 Davis Davis for units Paulette Caldwell anticoagulation RN straightener Log Time Note 14:06:16 Dony Treviño RT(R) sent for patient. Start room use. 14:06:18 Procedure Status Urgent Heart Cath (IP). 14:06:19 Time tracking: Regular hours (M-F 7:00 - 5:00) 14:06:23 Plan of Care:Hemodynamics will remain stable., Cardiac rhythm will remain stable., Comfort level will be maintained., Respiratory function will remain adequate., Patient/ family verbilizes understanding of procedure., Procedure tolerated without complication., Recovers from procedure without complications.. 14:08:07 Lab Result : BUN 11 mg/dl 14:08:07 Lab Result : Creatinine 1 mg/dl 14:08:07 Lab Result : eGFR NONAFRICAN 61.98048 ml/min 14:08:07 Lab Result : Hemoglobin 10.4 g/dl 14:08:07 Lab Result : Hematocrit 34 % 14:08:21 Patient Weight : 255.74 lbs 14:08:26 Patient Height : 61.81 inches 14:08:33 Arrival Date: 10/30/2018 12:00:00 AM 14:08:55 Insurance Payor : Private health insurance 14:09:06 Informed consent obtained and on chart 14::53 Indication : CAD 14::58 Indication : Angina 14:19:53 Patient received from Med II to CCL 1 Alert and oriented. Tansferred to table in Supine position. 14:19:54 Warm blankets applied, and gabbi hugger turned on for patient comfort. 14:19:54 Correct patient and procedure confirmed by team. 14:19:54 ECG and BP/O2 sat monitors applied to patient. 14::58 Vital chart was started 14:28:59 Baseline sample Acquired. 14:29:04 Rhythm: sinus rhythm 14:29:05 Full Disclosure recording started 14::08 Pre-procedure instructions explained to patient. 14:29:08 Pre-op teaching completed and patient verbalized understanding. 14:29:10 Family in patients room. 14:29:13 Patient NPO since Midnight. 14:29:16 Is the patient allergic to Iodine/contrast media? No. 14:29:18 Is patient on blood thinner?Yes 14:29:20 ACC The patient was administered the following blood thiners within the last 24 hours: ACCPlavix 14::23 0.9% NaCl 100 ml/hr I.V. was administered by Davis Caldwell RN; Per physician; 14::33 Oxygen 2 l/min etCO2 Nasal cannula was administered by Davis Caldwell RN; for low 02 sats; 14:29:43 Heparin Flush Bag (1000units/500ml NS) 2 bags added to field was administered by Davis Caldwell RN; used for procedure; 14::53 Lidocaine 2% 20ml vial added to field was administered by Davis Caldwell RN; for local anesthetic; 14:29:54 Patient allergic to Other allergyHYDROCODONE, HYDROCHLOROTHIZIDE, TOPIRAMATE, LATEX, VENOM( WASP) 14:29:56 Patient diabetic? Yes. 14:30:08 Previous problem with sedation/anesthesia? No ? 14:30:09 Snore? Yes 14:30:15 HOME 02 14:30:18 Sleep apnea? No 14:30:19 Deviated septum? No 14:30:20 Opens mouth fully? Yes 14:30:20 Sticks out tongue? Yes 14:30:23 Airway obstruction? No ? 14:30:25 Dentures? No ? 14:30:27 Pre procedure: right dorsailis pedis pulse 1+ Palpable, but thready & weak; easily obliterated 14:30:31 Patient pain scale 0/10 ?. 14:30:35 IV patent on arrival in right hand with 0.9% NaCl at [facility]. 14:30:38 Lab results completed and on chart. 14:30:42 Right groin area was prepped with chlora-prep and draped in sterile fashion 14:30:43 Alarms reviewed by Halina Chavez 14:30:44 Sharps counted by scrub and verified by R.N. 14:30:46 Use device set Femoral Dx 14:30:47 ACIST Syringe (02517) opened to sterile field. 14:30:48 Bag Decanter (2002S) opened to sterile field. 14:30:49 ACIST Hand Control (51937) opened to sterile field. 14:30:49 ACIST Manifold (84309) opened to sterile field. 14:30:50 Tegaderm 4 x 4 (1626W) opened to sterile field. 14:30:50 Medline Cath Pack ([id number]) opened to sterile field. 14:30:52 DIAGNOSTIC Multipack 5Fr catheter set (AP8678) opened to sterile field. 14:30:53 SHEATH 5FR Norphlet (CAO359) opened to sterile field. 14:30:53 EMERALD Guide Wire (956-723) opened to sterile field. 14:33:57 Patient not . Patient has had tubal. 14:35:42 --------ALL STOP TIME OUT------ 14:35:42 Final Timeout: patient, procedure, and site verified with staff and physician. All members of the team are in agreement. 14:35:44 Right groin site verified by team. 14:35:47 Fire Safety Assessment: A--An alcohol-based skin anteseptic being used preoperatively., C--Open oxygen or nitrous oxide is being used., D--An ESU, laser, or fiber-optic light is being used. 14:35:50 Physical assessment completed. ASA score P 3 - A patient with severe systemic disease as per Jarrod Perez MD. 14:35:53 2) 60-89 Mildly reduced kidney function, and other findings (as for stage 1) point to kidney disease. 14:35:57 Maximum allowable contrast dose (3.7 X eGFR X 0.75)169 ml. 14:36:02 Sedation plan: IV Moderate Sedation Medication:Versed, Fentanyl 14:37:29 Zero performed for pressure channel P1 14:37:32 Procedure started. 14:37:47 Local anesthetic to right femoral artery with Lidocaine 2% by Jarrod Perez MD.INITIAL ACCESS ONLY 14:37:59 Versed 2 mg I.V. was administered by Davis Caldwell RN; for sedation; 14:38:07 Fentanyl 100 mcg I.V. was administered by Davis Caldwell RN; for sedation; 14:39:28 A 5 Fr sheath was inserted into the Right Femoral artery 14:39:46 A MULTIPACK JL 4.0 5Fr catheter was advanced over the wire and used for Procedure. 14:41:38 LCA angiography performed. 14:41:52 Catheter removed. 14:43:17 A MULTIPACK 3DRC 5Fr catheter was advanced over the wire and used for Procedure. 14:43:20 RCA angiography performed. 14:43:48 Procedure type changed to Cath procedure, Diagnostic procedure, LHC, LHC w/Coronaries, Sedation Charges, Moderate Sedation up to 15 minutes, PCI procedure, PTCA, PTCA Initial, Peripheral Cath Diagnostic Procedure, Laborer Brush Clearing Peripheral Procedures, Four Vessel Arteriogram 14:44:03 Right carotid angiography performed. 14:46:14 Left carotid angiography performed. 14:46:28 Catheter removed. 14:46:33 A MULTIPACK Pigtail 5 Fr catheter was advanced over the wire and used for Procedure. 14:47:00 LV gram done using PENNY 14:47:20 Injector settings: Ml/sec: 10, Volume: 20, 14:47:45 SHEATH 6FR Norphlet (HOG355) opened to sterile field. 14:47:45 WHISPER 300cm guide wire ([id number]) opened to sterile field. 14:47:45 INFLATOR Merit BasixCompak (FX5924) opened to sterile field. 14:47:46 GUIDE 6FR XBLAD 3.5 catheter ([id number]) opened to sterile field. 14:47:59 LV hemodynamics recorded. 14:48:09 EF : 55 % 14:48:11 Catheter removed. 14:48:56 Sheath upsized to a 6 Fr Short. 14:50:12 6 Fr XBLAD 3.5 guide catheter was inserted over the wire 14:51:09 Heparin Bolus 5000 units I.V. was administered by Davis Caldwell RN; for anticoagulation; 14:52:25 WHISPER 300 wire advanced. 14:52:58 Wire advanced across lesion. 14:54:20 Pre PCI Site: [place] mLAD has 80% stenosis. 14:56:45 Inflate balloon Inflation number: 1 A NC EUPHORA 3.0 x 20 balloon ([id number]) was prepped and advanced across the Mid LAD , then inflated to 20 MEGAN for 0:15 (min:sec) . 14:57:19 Inflation number: 2 The NC EUPHORA 3.0 x 20 balloon ([id number]) was reinflated across the Mid LAD , to 20 MEGAN for 0:15 (min:sec) . 14:57:38 Balloon removed over the wire. 14:57:39 Guide catheter removed. 14:57:41 Wire removed. 14:57:47 EXOSEAL 6Fr (EX600) opened to sterile field. 14:58:36 Sheath removed intact; hemostasis achieved with Exoseal to the Right Femoral artery. 14:59:01 Procedure ended.(Physican Out) 14:59:43 Fluoroscopy time 06.00 minutes. 14:59:49 Fluoroscopy dose: 992 mGy 14:59:49 Flurop Dose total: 992 14:59:56 Dose Area Product 06238 mGy/cm. 14:59:59 Contrast amount:Isovue 300 153ml. 15:00:03 Maximum allowable dose exceeded? No. 15:00:04 Sharps counted by scrub and verified by R.N. 15:00:06 Post-op/insertion site Right Femoral artery dressed using a 4 x 4 and Tegaderm. 15:00:57 Post-procedure physical assessment completed. ASA score P 2 - A patient with mild systemic disease as per Jarrod Perez MD. 15:01:00 Post procedure rhythm: sinus rhythm 15:01:02 Estimated blood loss: 10 ml 15:01:03 Post procedure instruction explained to patient.Patient verbalizes understanding. 15:01:03 Patient needs reinforcement of post procedure teaching. 15:01:54 Procedure and supply charges have been captured, reviewed, submitted and are correct. 15:01:56 Procedure Complication : No complications 15:03:26 Vital chart was stopped 15:03:26 See physician's report for complete and final results. 15:03:30 Report given to Med II. 15:03:32 Patient transfered to Med II with Bed. 15:03:35 Procedure ended. 15:03:35 Full Disclosure recording stopped 15:03:38 End room use (Document Last) Intervention Summary Intervention Notes Time ActionType Lesion and Equipment Action# Pressure Duration Attributes Used 14:56:45 Inflate Mid LAD NC EUPHORA 1 20 00:15 balloon 3.0 x 20 balloon ([id number]) 14:57:19 Reinflate Mid LAD NC EUPHORA 2 20 00:15 balloon 3.0 x 20 balloon ([id number]) Device Usage Item Name Manufacture Quantity Catalog Hospital Part Current Minimal Lot# / Number Charge Number Stock Stock Serial# Code ACIST Acist 1 56675 304697 135034 687711 20 Syringe Medical (90868) Systems Inc Bag Decanter Microtek 1 2001S 441969 01628 262100 5 (2001S) Medical Inc. ACIST Hand Acist 1 40195 632009 224025 630380 5 Control Medical (80615) Systems Inc ACIST Acist 1 03378 590197 391370 186963 5 Manifold Medical (33814) Systems Inc Tegaderm 4 x 3M 1 1626W 452073 229285 806635 5 4 (1626W) Medline Cath Medline 1 [id number] 012071 97356 989392 5 Pack ([id number]) DIAGNOSTIC Cardinal 1 JC8446 541936 60635 441649 30 Multipack Health 5Fr catheter set (OK5026) SHEATH 5FR Terumo 1 RZD479 751673 582862 754151 5 Norphlet (IVB489) EMERALD Cardinal 1 502-455 704555 705090 394819 5 Guide Wire [facility] (502-455) MULTIPACK JL Cardinal 1 391449 5 4.0 5Fr Health catheter MULTIPACK Cardinal 1 487370 5 3DRC 5Fr Health catheter MULTIPACK Cardinal 1 109694 5 Pigtail 5 Fr Health catheter SHEATH 6FR Terumo 1 GTV798 888013 599007 871285 40 Norphlet (HDT673) WHISPER Bernabe 1 [id number] 576796 430103 817791 5 300cm guide Vascular wire (4463706WZ) INFLATOR Merit 1 TM5556 049345 899206 627344 15 [facility] Medical BasixCompak (CB7785) GUIDE 6FR Cardinal 1 [id number] 832565 974234 287185 10 XBLAD 3.5 Health catheter (92374445) NC EUPHORA Medtronic 1 [id number] 887061 502022 275661 0 [id number] 3.0 x 20 balloon ([id number]) EXOSEAL 6Fr Cardinal 1 EX600 020533 109542 516973 10 (EX600) Health Signature Audit [place] Stage Time Signature Unsigned Intra-Procedure 10/30/2018 Jennie Weldon 3:10:45 PM RT(R) Signatures Performing Physician : Signature : Jarrod Perez MD Date : Time : Monitor : Jennie Weldon Signature : RT Date : Time : Nurse : Davis Caldwell Signature : RN Date : Time : [place] [address] [place] [address]
[~2018-10-30 00:02] MED LIST changes: +BUTALB-APAP-CA1 EACH PO; +CATAPRES0.1 MG PO; +ISOSORBIDE MONO30 M1 PO; +PROMETRIUM200 MG PO; +ROBAXIN500 MG PO; +THYROID PO
[2018-10-30 00:22] VITALS: BP 112/73
[2018-10-30 00:44] LABS: BASOPHILS 0.4 % (0-2); EOSINOPHILS 2.5 % (0-7); HEMOGLOBIN 10.4 g/dL (12-16); IMMATURE GRANULOCYTES 0.2 % (0-5); LYMPHOCYTES 33.4 % (15-50); MCH 21.4 pg (26.0-34.0); MCHC 30.6 g/dL (31.0-37.0); MCV 70.1 fL (80.0-100.0); MEAN PLATELET VOLUME 9.4 fL (7.4-10.4); MONOCYTES 15.6 % (2-11); NEUTROPHILS 47.9 % (40-80); PLATELET COUNT 342 10x3/uL (130-400); RBC 4.85 10x6/uL (4.00-5.40); RDW 17.8 % (11.5-14.5); WBC 8.1 10x3/uL (4.8-10.8)
[2018-10-30 00:47] LABS: APTT 27.8 SECONDS (22.8-39.4); INR 0.95 (0.85-1.17); PROTIME 12.2 SECONDS (11.6-15.0)
[2018-10-30 00:51] LABS: ALBUMIN 3.1 g/dL (3.4-5.0); ALKALINE PHOSPHATASE 269 U/L (46-116); ALT (SGPT) 188 U/L (10-68); BILIRUBIN - TOTAL 0.47 mg/dL (0.2-1.3); CALC OSMOLALITY 276 mosm/kg (275-300); CALCIUM 8.4 mg/dL (8.5-10.1); CARBON DIOXIDE 30.8 mmol/L (21.0-32.0); CHLORIDE - SERUM 106 mmol/L (98-107); GLUCOSE 105 mg/dL (74-106); POTASSIUM - SERUM 4.7 mmol/L (3.5-5.1); PROTEIN - SERUM 7.1 g/dL (6.4-8.2); SODIUM 139 mmol/L (136-145); UREA NITROGEN 11 mg/dL (7-18); eGFR NON AFRICAN AMERICAN 61 mL/min (90-120)
[2018-10-30 00:59] VITALS: BP 106/73
[2018-10-30 01:01] LABS: CKMB 1.1 U/L (0.0-3.6); CREATINE KINASE 83 UL (21-215); MAGNESIUM - SERUM 2.2 mg/dL (1.8-2.4)
[2018-10-30 01:11] LABS: TROPONIN-I < 0.017 ng/mL (0.000-0.060)
[2018-10-30] MEDS ORDERED: KLONOPIN0.5 MG PO (02:32)
[2018-10-30 03:05] VITALS: BP 129/77; BMI 46.7
[2018-10-30 07:14] LABS: CKMB 0.9 U/L (0.0-3.6); CREATINE KINASE 73 UL (21-215); TROPONIN-I < 0.017 ng/mL (0.000-0.060)
[2018-10-30 09:00] VITALS: BP 109/83
[2018-10-30 09:17] LABS: ANION GAP 13.8 mmol/L (8-16); CALCIUM 8.7 mg/dL (8.5-10.1); CARBON DIOXIDE 25.7 mmol/L (21.0-32.0); CREATININE - SERUM 0.9 mg/dL (0.6-1.3); POTASSIUM - SERUM 4.5 mmol/L (3.5-5.1)
[2018-10-30 09:32] LABS: BASOPHILS 0.4 % (0-2); EOSINOPHILS 2.5 % (0-7); HEMATOCRIT 34.1 % (36.0-48.0); HEMOGLOBIN 10.5 g/dL (12-16); IMMATURE GRANULOCYTES 0.4 % (0-5); MCH 21.6 pg (26.0-34.0); MCHC 30.8 g/dL (31.0-37.0); MEAN PLATELET VOLUME 10.3 fL (7.4-10.4); MONOCYTES 12.4 % (2-11); NEUTROPHILS 41.3 % (40-80); PLATELET COUNT 306 10x3/uL (130-400); RBC 4.87 10x6/uL (4.00-5.40); RDW 17.9 % (11.5-14.5); WBC 7.5 10x3/uL (4.8-10.8)
--- NOTE | 2018-10-30 09:32 | NUR ---
CONSENTS SIGNED FOR [facility]. WILL CONT. PLAN OF CARE.
[2018-10-30 13:02] VITALS: BP 107/65
[2018-10-30 13:29] LABS: CKMB 0.9 U/L (0.0-3.6); CREATINE KINASE 71 UL (21-215)
[2018-10-30 13:30] LABS: TROPONIN-I < 0.017 ng/mL (0.000-0.060)
[2018-10-30 13:31] VITALS: Ht 157.5 cm; Wt 115.9 kg
[2018-10-30 13:53] LABS: % SATURATION 3 % (15-55); IRON 18 ug/dl (35-150); TOTAL IRON BIND CAPACITY 461 ug/dl (260-445); UNSAT IRON BIND CAPACITY 443 ug/dl (150-375)
--- NOTE | 2018-10-30 14:23 | NUR ---
PRE-OPS GIVEN. TO PHP ARCHITECT BY BED.
--- NOTE | 2018-10-30 14:29 | CN ---
PATIENT NAME:FEDERICO DÍAZ MEDICAL RECORD: [id number] : 65 LOCATION:D. D.2116 ADMIT DATE: 10/30/18 ACCOUNT: [id number] CONSULTING PHYSICIAN: BRITTON WILLIS MD REFERRING PHYSICIAN: ARLIN GIBSON MD DATE OF CONSULTATION: 10/30/2018 HISTORY OF PRESENT ILLNESS: A 53-year-old female with a known history of coronary artery disease, status post intervention to LAD. She subsequently had restenosis with re-interventions over a year ago, began having onset of chest pain last night, tightness and pressure radiating to the jaw, has been having some exertional symptomatology that has progressed rapidly. Additional symptomatology this episode include a right facial droop as well as visual changes consistent with amaurosis, left greater than right. We are asked to see her concerning her cardiovascular status. PAST MEDICAL HISTORY: Includes: 1. History of hypertension. 2. Hyperlipidemia. MEDICATIONS: Hydrocortisone 15 mg p.o. b.i.d., Lasix 30 every day, Aldactone 25 every day, metoprolol 25 b.i.d., lisinopril 20 b.i.d., Imdur 15 every day, Plavix 75 every day. ALLERGIES: HYDROCODONE, HYDROCHLOROTHIAZIDE, TOPAMAX. SOCIAL HISTORY: Nonsmoker and nondrinker. Easily takes care of all her ADLs. REVIEW OF SYSTEMS: The patient reports easy bruising but reports no swollen glands. The patient reports no fever, no night sweats, no significant weight gain, no significant weight loss. No significant exercise tolerance. The patient reports no dry eyes, no irritation, no vision change. Patient reports no difficulty hearing and no ear pain. Patient reports no frequent nose bleeds or nose and sinus problems. Patient reports on arm pain on exertion. No shortness of breath while lying down. No history of heart murmur. Patient reports no cough, no wheezing or coughing up blood. Patient reports no abdominal pain, no vomiting. Normal appetite. No diarrhea and not vomiting blood. No nausea and no constipation. Patient reports no incontinence. No difficulty urinating. No hematuria. No increased frequency. Patient reports no muscle aches. No weakness, no arthralgias, no back pain. No swelling of the extremities. Patient reports no abnormal mole, no jaundice, no rashes. Reports no loss of consciousness. No weakness and no numbness. No seizures, dizziness, or headaches. The patient reports no depression, no sleep disturbance, feeling safe in a relationship and no alcohol abuse. Patient reports on fatigue. Reports no runny nose or sinus pressure. No itching, no hives, and no frequent sneezing. PHYSICAL EXAMINATION: GENERAL: Pleasant female in no acute distress. VITAL SIGNS: Blood pressure 129/77, pulse 62 and regular. HEENT: Normocephalic, atraumatic. NECK: Questionable right carotid bruit. HEART: Regular. II/ ejection murmur. LUNGS: Good air excursion. ABDOMEN: Soft, nontender. CONSULT REPORT [id number] ARJUNFEDERICO J EXTREMITIES: Pulses 2+ with no edema. DIAGNOSTIC DATA: ECG without acute change. IMPRESSION: Class IV angina with a known history of coronary artery disease. Additionally given her TIA type symptomatology with amaurosis and facial drooping, plan for a 4-vessel at the same time. TRANSINT:[id number] Voice Confirmation ID: [id number] DOCUMENT ID: [id number] BRITTON WILLIS MD at 1429 CC: [id number] DICTATION DATE: 10/30/18 0850 PRODUCT SAFETY AND STANDARDS ENGINEER: 10/30/18 1202 ADM IN [id number] [place] [address]
--- NOTE | 2018-10-30 15:35 | NUR ---
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 VS WNL. RIGHT GROIN STABLE WITHOUT BLEEDING OR HEMATOMA NOTED. WILL MONITOR.
[2018-10-30 17:11] VITALS: BP 110/60
--- NOTE | 2018-10-30 19:04 | NUR ---
BEDSIDE REPORT RECEIVED. PATIENT IS ALERT AND ORIENTED, CONTINUES ON BEDSIDE. RESPIRATIONS ARE EVEN AND UNLABORED. NO S/S OF DISTRESS. NO C/O PAIN. RIGHT GROIN SOFT NO SIGNS OF BRUISING, BLEEDING OR HEMATOMA. CALL LIGHT WITHIN REACH. WILL CPOC.
[2018-10-30 19:23] LABS: CKMB 0.7 U/L (0.0-3.6); TROPONIN-I < 0.017 ng/mL (0.000-0.060)
[2018-10-30 19:28] LABS: CREATINE KINASE 84 UL (21-215)
--- NOTE | 2018-10-31 11:58 | OP ---
PATIENT NAME: FEDERICO DÍAZ MEDICAL RECORD: [id number] :65 LOCATION:D.M2 D.2116 ADMISSION DATE:10/30/18 SURGEON: BRITTON WILLIS MD DATE OF OPERATION: 10/30/2018 Cardiac catheterization with 4 vessels plus PCI to LAD PROCEDURE: Left heart catheterization via right femoral artery approach. CATHETERS: A 5-Maltese sheath, 5/4 left and right Alexander, 5/4 pig. The procedure was well tolerated. The patient returned to the bashir. Sheath removed. ExoSeal device placed. FINDINGS: Left ventriculography in 30-degree PENNY view: Normal wall motion and normal systolic function. CORONARY ANATOMY: LEFT MAIN: Left main is free of disease. LAD: Has diffuse in-stent restenosis about 80% in its distal third. CIRCUMFLEX: Free to disease. RIGHT CORONARY ARTERY: Free of disease. DESCRIPTION OF PROCEDURE: The right diagnostic catheter was used, the right common carotid was selectively engaged and it shows a smooth-walled vessel, free of disease. Right internal carotid is smooth-walled vessel, free of disease. Right external carotid smooth-walled vessel, free of disease. Left common carotid was selectively engaged, this is a somewhat tortuous artery but no flow obstructive stenosis. Left internal carotid artery is smooth walled, free of disease. Left external carotid smooth-walled vessel, free of disease. A 5-Maltese sheath was exchanged for a 6-Maltese sheath. An XB LAD 3.5 guiding catheter provided good guide catheter support, followed by 300 cm Whisper wire was placed across the tightly re-stenosed LAD down the distal portion of the vessels. The balloon used was a 3.0 x 20 mm noncompliant balloon up to 20 atmospheres and the area of restenosis showed excellent resolution with no significant residual. OLIVA flow was 3 throughout the procedure. The patient was previously on Plavix. Heparin loaded in the lab. Sheath was closed with the ExoSeal device. TRANSINT:[id number] Voice Confirmation ID: [id number] DOCUMENT ID: [id number] BRITTON WILLIS MD at 1158 CC: [id number] DICTATION DATE: 10/30/18 1506 PATIENT FINANCIAL REP: 10/31/18 0037 DIS IN 10/30/18 [facility] [address] [place] [address]
== END 2018-10-30 19:57 | disposition home or self-care (01) ==
LOC: D.ER 00:02 → OBSVTIME 01:12 → D.M2 01:12
PROVIDERS: Family Medicine; Internal Medicine Interventional Cardiology; ADMIT Internal Medicine Nephrology; ATTEND Internal Medicine Nephrology
DX: T82.855A Stenosis of coronary artery stent, initial encounter (principal); I25.110 Atherosclerotic heart disease of native coronary artery with unstable angina pectoris; Y83.8 Other surgical procedures as the cause of abnormal reaction of the patient, or of later complication, without mention of misadventure at the time of the procedure; E78.5 Hyperlipidemia, unspecified; H54.7 Unspecified visual loss; Z86.73 Personal history of transient ischemic attack (TIA), and cerebral infarction without residual deficits; E11.9 Type 2 diabetes mellitus without complications; R29.810 Facial weakness; I11.0 Hypertensive heart disease with heart failure; I50.9 Heart failure, unspecified; I48.91 Unspecified atrial fibrillation; J44.9 Chronic obstructive pulmonary disease, unspecified; M32.9 Systemic lupus erythematosus, unspecified; D50.9 Iron deficiency anemia, unspecified; F32.9 Major depressive disorder, single episode, unspecified; F41.9 Anxiety disorder, unspecified; M79.605 Pain in left leg; M79.602 Pain in left arm; R68.84 Jaw pain